=== PATIENT | male | born 1940 | race Caucasian/White ===

== ENCOUNTER 2019-03-24 06:10 | Day surgery (SDC) | payer MEDICARE, OTHER ==
[~2019-03-24] VITALS: Ht 160 cm; Wt 89.7 kg
[~2019-03-24 06:10] MED LIST: ATOR20 PO; LISI20 PO; METF500 PO; TAMS.4ER PO
[2019-03-24] MEDS ORDERED: MELO7.5 PO (06:49)
[2019-03-24] MEDS ORDERED: ASPI81CH PO (06:49)
== END 2019-03-24 08:14 | disposition home or self-care (01) ==
LOC: ORSCSDS 06:10
PROVIDERS: Ophthalmology
PROC: 08RJ3JZ Replacement of Right Lens with Synthetic Substitute, Percutaneous Approach (ICD-10-PCS; principal; 2019-03-24 07:30)
DX: H25.11 Age-related nuclear cataract, right eye (principal); H21.81 Floppy iris syndrome; I10 Essential (primary) hypertension; E11.9 Type 2 diabetes mellitus without complications; E78.00 Pure hypercholesterolemia, unspecified; Z79.84 Long term (current) use of oral hypoglycemic drugs; Z79.82 Long term (current) use of aspirin; Z79.899 Other long term (current) drug therapy
CPT/HCPCS: 82947; J2001; J2250; J3010; J3301; J7040; V2632

== ENCOUNTER 2019-07-07 06:39 | Day surgery (SDC) | payer MEDICARE, OTHER ==
[~2019-07-07] VITALS: Ht 167.6 cm; Wt 89.9 kg
[~2019-07-07 06:39] MED LIST changes: +ARTHRITIS HOT P; +ASPI81CH PO; +CHLO4 PO; +IBUP200 PO; +MELO7.5 PO; +MOBIC15 MG PO; +Prinivil10 MG PO; +Saw Palmetto450 MG PO; +VITAMIN D350 MCG PO; +ZYRTEC10 MG; +[UNRECOGNIZED DRUG - OTHER]
== END 2019-07-07 08:46 | disposition home or self-care (01) ==
LOC: ORSCSDS 06:39
PROVIDERS: Ophthalmology
PROC: 08RK3JZ Replacement of Left Lens with Synthetic Substitute, Percutaneous Approach (ICD-10-PCS; principal; 2019-07-07 08:00)
DX: H25.12 Age-related nuclear cataract, left eye (principal); H21.81 Floppy iris syndrome; I10 Essential (primary) hypertension; E78.5 Hyperlipidemia, unspecified; E11.9 Type 2 diabetes mellitus without complications; Z79.899 Other long term (current) drug therapy; Z79.82 Long term (current) use of aspirin
CPT/HCPCS: 82947; J2001; J2250; J3010; J3301; J7040; V2632

== ENCOUNTER → 2022-12-18 | Outpatient (CLI) | payer MEDICARE, OTHER ==
[~2022-12-18] MED LIST changes: +ACET325 PO; +AMOCLA875 PO; +ELIQUIS5 M2 PO; +LIVALO2 MG PO; +MIRALAX17 GM PO; +Mobic15 MG PO; +OMEP20ER PO; +OXYC5 PO; +SENN187 PO; +TAMSULOSIN HCL0.4 M1 PO; +VISBIOME 112.51 EACH PO; +XTAMPZA ER9 MG PO
[2022-12-18 17:16] LABS: BASOPHILS ABSOLUTE AUTO 0.03 K/mm3 (0.00-0.23); BASOPHILS PERCENT AUTO 0 % (0-2); EOSINOPHILS ABSOLUTE AUTO 0.09 K/mm3 (0.00-0.68); EOSINOPHILS PERCENT AUTO 1 % (0-6); Hematocrit 38.5 % (37.0-53.0); Hemoglobin 12.1 g/dL (13.5-17.5); IMMATURE GRAN ABSOLUTE AUTO 0.02 K/mm3 (0.00-0.10); IMMATURE GRAN PERCENT AUTO 0 % (0-1); LYMPHOCYTES ABSOLUTE AUTO 1.75 K/mm3 (0.84-5.20); LYMPHOCYTES PERCENT AUTO 26 % (21-46); MONOCYTES ABSOLUTE AUTO 0.67 K/mm3 (0.16-1.47); MONOCYTES PERCENT AUTO 10 % (4-13); Mean Corpuscular HGB 28.4 pg (26.0-34.0); Mean Corpuscular HGB Conc 31.4 g/dL (31.5-36.5); Mean Corpuscular Volume 90 fL (80-100); Mean Platelet Volume 10.1 fL (9.1-12.4); NEUTROPHILS ABSOLUTE AUTO 4.15 K/mm3 (1.96-9.15); NEUTROPHILS PERCENT AUTO 62 % (41-73); Platelet Count 236 K/mm3 (150-400); RDW Coefficient Variation 14.9 % (11.7-14.2); RDW Standard Deviation 49.1 fL (35.1-46.3); Red Blood Cell Count 4.26 M/mm3 (4.30-5.90); White Blood Cell Count 6.71 K/mm3 (4.00-11.30)
[2022-12-18 19:44] LABS: PSA, %Free 31.6 %
[2022-12-18 19:51] LABS: Alanine Aminotransfer (ALT/SGP 38 U/L (12-78); Albumin, Blood 3.5 g/dL (3.4-5.0); Albumin/Globulin Ratio 0.7 (0.8-1.8); Alk Phos 88 U/L (50-136); Anion Gap 7 mmol/L (6-16); Aspartate Aminotrans (AST/SGOT 30 U/L (12-37); Bilirubin, Direct <0.1 mg/dL (0.0-0.3); Bilirubin, Total 0.3 mg/dL (0.1-1.0); Blood Urea Nitrogen 20 mg/dL (8-24); Bun/Creatinine Ratio 26.1 (12.0-20.0); CO2, Blood 25 mmol/L (21-32); Calcium, Blood 9.5 mg/dL (8.5-10.1); Chloride, Blood 104 mmol/L (98-108); Creatinine, Blood 0.77 mg/dL (0.60-1.20); Glomerular Filtration Rate 90 (60-); Glucose, Blood 155 mg/dL (70-99); Potassium, Blood 4.5 mmol/L (3.5-5.5); Sodium, Blood 136 mmol/L (136-145); Total Protein, Blood 8.5 g/dL (6.4-8.2)
[2022-12-18 19:53] LABS: Bilirubin, Indirect Unable to Calculate mg/dL (0.1-0.7)
== END | disposition home or self-care (01) ==
LOC: LAB SHORT 15:42 → LAB 15:42 → LAB FUT 04-03 16:30
PROVIDERS: Internal Medicine
DX: E11.9 Type 2 diabetes mellitus without complications (principal); I10 Essential (primary) hypertension; R97.20 Elevated prostate specific antigen [PSA]; D64.9 Anemia, unspecified; R74.01 Elevation of levels of liver transaminase levels
CPT/HCPCS: 36415; 80048; 80076; 84153; 84154; 85025

== ENCOUNTER 2024-01-11 11:06 | Inpatient (IN) | payer MEDICARE, OTHER ==
[~2024-01-11] VITALS: Ht 165.1 cm; Wt 75.2 kg
[~2024-01-11 11:06] MED LIST changes: -LIVALO2 MG PO
[2024-01-11 12:27] LABS: BASOPHILS ABSOLUTE AUTO 0.05 K/mm3 (0.00-0.23); BASOPHILS PERCENT AUTO 0 % (0-2); EOSINOPHILS PERCENT AUTO 0 % (0-6); Hematocrit 33.9 % (37.0-53.0); Hemoglobin 11.7 g/dL (13.5-17.5); IMMATURE GRAN ABSOLUTE AUTO 0.23 K/mm3 (0.00-0.10); IMMATURE GRAN PERCENT AUTO 1 % (0-1); LYMPHOCYTES PERCENT AUTO 4 % (21-46); MONOCYTES ABSOLUTE AUTO 1.63 K/mm3 (0.16-1.47); MONOCYTES PERCENT AUTO 6 % (4-13); Mean Corpuscular HGB 29.2 pg (26.0-34.0); Mean Corpuscular HGB Conc 34.5 g/dL (31.5-36.5); Mean Corpuscular Volume 85 fL (80-100); Mean Platelet Volume 9.3 fL (9.1-12.4); NEUTROPHILS ABSOLUTE AUTO 22.96 K/mm3 (1.96-9.15); NEUTROPHILS PERCENT AUTO 89 % (41-73); Platelet Count 335 K/mm3 (150-400); RDW Coefficient Variation 12.9 % (11.7-14.2); RDW Standard Deviation 39.9 fL (35.1-46.3); Red Blood Cell Count 4.01 M/mm3 (4.30-5.90); White Blood Cell Count 25.77 K/mm3 (4.00-11.30)
[2024-01-11 12:44] LABS: Albumin, Blood 2.3 g/dL (3.4-5.0); Albumin/Globulin Ratio 0.5 (0.8-1.8); Bilirubin, Total 0.3 mg/dL (0.1-1.0); Calcium, Blood 9.2 mg/dL (8.5-10.1); Creatinine, Blood 3.83 mg/dL (0.60-1.20); Globulin, Blood 4.9 g/dL (2.2-4.0); Potassium, Blood 5.2 mmol/L (3.5-5.5); Total Protein, Blood 7.2 g/dL (6.4-8.2)
[2024-01-11] MEDS ORDERED: Lactated Ringer's 1,000 ML IV SCH (15:25)
[2024-01-11] MEDS ORDERED: FLU VACC TS2024-25(6MOS UP)/PF 45 MCG/0.5 ML SYRINGE IM PRN (16:20)
[2024-01-11] MEDS ORDERED: Ondansetron HCl 2 MG / ML 2ML Vial IV PRN (16:20)
[2024-01-11] MEDS ORDERED: NS 1,000 ML IV SCH (16:20)
[2024-01-11] MEDS ORDERED: HydrALAZINE HCl 10 MG Tab PO PRN (16:25)
[2024-01-11] MEDS ORDERED: Acetaminophen 325 MG TABLET PO PRN (16:25)
[2024-01-11] MEDS ORDERED: Insulin Regular 100 UNIT/ML 10ML Vial SC SCH (16:30)
[2024-01-11 17:15] LABS: Uric Acid, Blood 8.3 mg/dL (3.5-7.2)
[2024-01-11 17:24] LABS: Thyroid Stimulating Hormone 0.719 uIU/mL (0.360-4.800)
[2024-01-11 18:17] VITALS: BP 153/80
[2024-01-11] MEDS ORDERED: NITR.4SL SL (18:20)
--- NOTE | 2024-01-11 18:54 | NUR ---
ADMIT MR ALDANA WAS ADMITTED FROM ER AT 1807HRS. TRANSFERED VIA WHEELCHAIR AND MOVED OVER INTO BED WITH STANDBY ASSISTANCE. ACCOMPANIED BY HIS . PT C/O HAVING THE URGE TO VOID AND BEING UNABLE TO. BLADDER SCAN 352CC. ATTEMPTED TO CALL DR PEREZ, NO MESSAGE LEFT. PT SAID HE TAKES TYLENOL 1000MG PO AT HOME FOR CHRONIC BACK PAIN AND HAS BEEN TOLD NOT TO TAKE IT D/T HIS KIDNEYS, REQUESTING PAIN MEDICATIONS. HIS GIVES HIM HIS MEDICATIONS AND SHE SAID HE HAS BEEN OFF OF ELIQUIS SINCE MARCH. PUT ON CONTACT ISOLATION FOR R/O CDIFF. IVF STARTED AT 125CC/HR. REPORT TO GEGE CARPIO (NG=IGHT SHIFT).
[2024-01-11 19:41] VITALS: BP 154/82
[2024-01-11 20:32] LABS: Source, Urine Straight Cath
[2024-01-11 20:48] LABS: Bilirubin, Urine Neg (Neg); Blood, Urine 5+ (Neg); Glucose Qualitative, Urine Neg (Neg); Ketones, Urine Neg (Neg); Leukocyte Esterase, Urine Neg (Neg); Nitrite, Urine Neg (Neg); Protein, Urine 1+ (Neg); Urobilinogen, Urine NORM (Normal)
[2024-01-11] MEDS ORDERED: TraMADol HCl 50 MG Tab PO PRN (20:50)
[2024-01-11 20:59] LABS: Appearance, Urine Hazy (Clear); Color, Urine Yellow (P-Yellow)
[2024-01-11 21:00] LABS: Bacteria Not Seen /hpf; Red Blood Cells, Urine TNTC /hpf (0-2); Squamous Epithelial Cells Not Seen /hpf (Few); White Blood Cells, Urine 0-2 /hpf (0-5)
[2024-01-11] MEDS ORDERED: Apixaban 5 MG Tab PO SCH (21:00)
[2024-01-11] MEDS ORDERED: Lactobacil 2-S.Thermo-Bifido 1 1 Cap PO SCH (21:00)
[2024-01-12 04:08] VITALS: BP 117/60
[2024-01-12 05:42] LABS: BASOPHILS ABSOLUTE AUTO 0.03 K/mm3 (0.00-0.23); BASOPHILS PERCENT AUTO 0 % (0-2); EOSINOPHILS ABSOLUTE AUTO 0.01 K/mm3 (0.00-0.68); EOSINOPHILS PERCENT AUTO 0 % (0-6); Hematocrit 28.3 % (37.0-53.0); Hemoglobin 9.5 g/dL (13.5-17.5); IMMATURE GRAN ABSOLUTE AUTO 0.16 K/mm3 (0.00-0.10); IMMATURE GRAN PERCENT AUTO 1 % (0-1); LYMPHOCYTES ABSOLUTE AUTO 0.72 K/mm3 (0.84-5.20); LYMPHOCYTES PERCENT AUTO 4 % (21-46); MONOCYTES ABSOLUTE AUTO 1.67 K/mm3 (0.16-1.47); MONOCYTES PERCENT AUTO 8 % (4-13); Mean Corpuscular HGB 28.6 pg (26.0-34.0); Mean Corpuscular HGB Conc 33.6 g/dL (31.5-36.5); Mean Corpuscular Volume 85 fL (80-100); Mean Platelet Volume 9.5 fL (9.1-12.4); NEUTROPHILS ABSOLUTE AUTO 18.13 K/mm3 (1.96-9.15); NEUTROPHILS PERCENT AUTO 88 % (41-73); Platelet Count 285 K/mm3 (150-400); RDW Coefficient Variation 13.2 % (11.7-14.2); RDW Standard Deviation 40.9 fL (35.1-46.3); Red Blood Cell Count 3.32 M/mm3 (4.30-5.90); White Blood Cell Count 20.72 K/mm3 (4.00-11.30)
[2024-01-12 06:23] LABS: Albumin, Blood 1.9 g/dL (3.4-5.0); Albumin/Globulin Ratio 0.4 (0.8-1.8); Bilirubin, Total 0.3 mg/dL (0.1-1.0); Bun/Creatinine Ratio 13.2 (12.0-20.0); Calcium, Blood 8.4 mg/dL (8.5-10.1); Creatinine, Blood 2.95 mg/dL (0.60-1.20); Globulin, Blood 4.3 g/dL (2.2-4.0); Potassium, Blood 4.7 mmol/L (3.5-5.5); Total Protein, Blood 6.2 g/dL (6.4-8.2)
--- NOTE | 2024-01-12 07:24 | NUR ---
PT IS ALERT TO SELF, SITUATION AND , MARYAM WHOM IS IN ROOM. INTERMITTENT CONFUSION. AMBULATES WITH A CANE. TELE IN PLACE SR 81. PT IS ON ISOLATION TO RULE OUT D-DIFF. UNABLE TO VOID, REC'D ORDER TO BLADDER SCAN POST VOID/DISCOMFORT AND STRAIGHT CATH >300 ML RESIDUAL URINE. PT ONLY SLEPT A COUPLE OF HOURS BROKE UP THROUGHOUT THE NIGHT. BED ALARM ACTIVATED FOR CONFUSION.
[2024-01-12 07:31] VITALS: BP 135/69
[2024-01-12] MEDS ORDERED: NS 1,000 ML IV SCH (08:25)
[2024-01-12] MEDS ORDERED: Tamsulosin HCl 0.4 MG Cap PO SCH (09:00)
[2024-01-12 10:09] LABS: Source, Urine Foley catheter
[2024-01-12 10:47] LABS: Appearance, Urine Hazy (Clear); Bilirubin, Urine Neg (Neg); Blood, Urine 5+ (Neg); Color, Urine Yellow (P-Yellow); Glucose Qualitative, Urine Neg (Neg); Ketones, Urine Neg (Neg); Leukocyte Esterase, Urine 1+ (Neg); Nitrite, Urine Neg (Neg); Protein, Urine 1+ (Neg); Specific Gravity, Urine 1.005 (1.003-1.022); Urobilinogen, Urine NORM (Normal)
[2024-01-12 11:10] LABS: Bacteria Few /hpf; Mucus Heavy (0-Heavy); Squamous Epithelial Cells Not Seen /hpf (Few)
[2024-01-12] MEDS ORDERED: CINNAMON EXTRA500 MG PO (14:02)
[2024-01-12] MEDS ORDERED: B-12500 MC2 PO (14:02)
[2024-01-12] MEDS ORDERED: KRILL OIL500 MG PO (14:04)
[2024-01-12] MEDS ORDERED: PRESERVISION A1 EAC1 PO (14:04)
[2024-01-12] MEDS ORDERED: Saw Palmetto160 MG PO (14:04)
[2024-01-12] MEDS ORDERED: LIVALO2 MG PO (14:06)
[2024-01-12 15:54] VITALS: BP 124/70
[2024-01-12 19:21] VITALS: BP 117/71
--- NOTE | 2024-01-12 19:37 | NUR ---
SHIFT SUMMARY- PT ALERT AND ORIENTED TO SELF AND FAMILY. PT HAD SEVERE URINARY RETENTION SINCE ADMIT. BLADDER SCANS AND STRAIGHT CATHS T/O THE NIGHT. PT HAD PAINFUL ABDOMEN WITH BLADDER SCAN OF 817ML THIS AM. SPOKE TO DR PEREZ AND RECIEVED AN ORDER TO PLACE A BUCHANAN CATH. PLACED A 14FR COUDE. PT SPOUSE STATES HE HAS BECOME MUCH MORE CLEAR T/O THE DAY, "EVER SINCE YOU PUT THAT CATHETER IN TODAY." PT IS IN BED, CALL LIGHT IN REACH NO S&S OF DISTRESS NOTED AT THE TIME OF BEDSIDE REPORT. BUCHANAN IN PLACE DRAINING YELLOW URINE. PT DENIES PAIN.
[2024-01-12 20:19] LABS: Adenovirus F 40/41 Not Detected (NOT DETECT); Astrovirus Not Detected (NOT DETECT); Campylobacter Sp Not Detected (NOT DETECT); Cryptosporidium Not Detected (NOT DETECT); Cyclospora Cayetanensis Not Detected (NOT DETECT); E. Coli O157 Not Detected (NOT DETECT); Entamoeba Histolytica Not Detected (NOT DETECT); Enteroaggregative E. coli-EAEC Not Detected (NOT DETECT); Enteropathogenic E. coli-EPEC Not Detected (NOT DETECT); Enterotoxigenic E. coli-ETEC Not Detected (NOT DETECT); Giardia Lamblia Not Detected (NOT DETECT); Norovirus GI/GII Not Detected (NOT DETECT); Plesiomonas Shigelloides Not Detected (NOT DETECT); Rotavirus A Not Detected (NOT DETECT); Salmonella Sp Not Detected (NOT DETECT); Sapovirus Not Detected (NOT DETECT); Shiga Toxin-prod E. coli-STEC Not Detected (NOT DETECT); Shigella/Enteroin E. coli-EIEC Not Detected (NOT DETECT); Vibrio Cholerae Not Detected (NOT DETECT); Vibrio Sp Not Detected (NOT DETECT); Yersinia Enterocolitica Not Detected (NOT DETECT)
--- NOTE | 2024-01-13 03:46 | NUR ---
Pt A&Ox3, able to make needs known, VSS, farnsworth patent and draining, medicated 1x with tylenol for c/o 4/10 back pain; sleeping at this time w/ at bedside, will cont to monitor until report given to oncoming nurse.
[2024-01-13 04:29] VITALS: BP 118/61
[2024-01-13 07:45] VITALS: BP 148/70
[2024-01-13 08:51] LABS: BASOPHILS ABSOLUTE AUTO 0.04 K/mm3 (0.00-0.23); BASOPHILS PERCENT AUTO 0 % (0-2); EOSINOPHILS ABSOLUTE AUTO 0.06 K/mm3 (0.00-0.68); EOSINOPHILS PERCENT AUTO 1 % (0-6); Hematocrit 32.2 % (37.0-53.0); Hemoglobin 10.6 g/dL (13.5-17.5); IMMATURE GRAN ABSOLUTE AUTO 0.08 K/mm3 (0.00-0.10); IMMATURE GRAN PERCENT AUTO 1 % (0-1); LYMPHOCYTES PERCENT AUTO 9 % (21-46); MONOCYTES ABSOLUTE AUTO 1.34 K/mm3 (0.16-1.47); MONOCYTES PERCENT AUTO 11 % (4-13); Mean Corpuscular HGB 28.6 pg (26.0-34.0); Mean Corpuscular HGB Conc 32.9 g/dL (31.5-36.5); Mean Corpuscular Volume 87 fL (80-100); Mean Platelet Volume 9.1 fL (9.1-12.4); NEUTROPHILS ABSOLUTE AUTO 9.44 K/mm3 (1.96-9.15); NEUTROPHILS PERCENT AUTO 78 % (41-73); Platelet Count 292 K/mm3 (150-400); RDW Coefficient Variation 13.3 % (11.7-14.2); RDW Standard Deviation 42.7 fL (35.1-46.3); White Blood Cell Count 12.06 K/mm3 (4.00-11.30)
[2024-01-13] MEDS ORDERED: Banana Flakes/Tos 1 EA Powder Pack PO SCH (09:00)
[2024-01-13 09:15] LABS: Bun/Creatinine Ratio 18.4 (12.0-20.0); Creatinine, Blood 1.25 mg/dL (0.60-1.20); Potassium, Blood 4.7 mmol/L (3.5-5.5)
[2024-01-13] MEDS ORDERED: BANATROL PLUS1 EAC1 PO (10:55)
[2024-01-13 14:57] VITALS: BP 158/67
--- NOTE | 2024-01-13 16:45 | NUR ---
PATIENT DC'D TO HOME WITH SPOUSE. DC INSTRUCTIONS AND EDUCATION DISCUSSED WITH PATIENT AND COPY PROVIDED. DISCUSSED CATHETER CARE. [facility] TO FOLLOW UP. PATIENT DENIES ANY URTHER QUESTIONS OR CONCERNS. RX MEDICATIONS FAXED TO [facility].
== END 2024-01-13 17:17 | disposition home health service (06) | DRG 683 ==
LOC: ER 11:06 → MEDS 18:05
PROVIDERS: Nurse Practitioner Acute Care; Physician Assistant; ADMIT Internal Medicine
PROC: 0T9B70Z Drainage of Bladder with Drainage Device, Via Natural or Artificial Opening (ICD-10-PCS; principal; 2024-01-12)
DX: N17.9 Acute kidney failure, unspecified (principal); E87.1 Hypo-osmolality and hyponatremia; E87.21 Acute metabolic acidosis; K52.9 Noninfective gastroenteritis and colitis, unspecified; M54.9 Dorsalgia, unspecified; G89.29 Other chronic pain; I27.20 Pulmonary hypertension, unspecified; K74.60 Unspecified cirrhosis of liver; E86.0 Dehydration; E11.9 Type 2 diabetes mellitus without complications; I10 Essential (primary) hypertension; D63.8 Anemia in other chronic diseases classified elsewhere; N40.1 Benign prostatic hyperplasia with lower urinary tract symptoms; R39.14 Feeling of incomplete bladder emptying; H91.93 Unspecified hearing loss, bilateral; Z85.828 Personal history of other malignant neoplasm of skin; K21.9 Gastro-esophageal reflux disease without esophagitis; I35.0 Nonrheumatic aortic (valve) stenosis; Z90.49 Acquired absence of other specified parts of digestive tract; Z98.890 Other specified postprocedural states; Z86.718 Personal history of other venous thrombosis and embolism; Z87.81 Personal history of (healed) traumatic fracture; Z88.5 Allergy status to narcotic agent; Z79.82 Long term (current) use of aspirin; Z79.01 Long term (current) use of anticoagulants; Z79.84 Long term (current) use of oral hypoglycemic drugs; Z79.899 Other long term (current) drug therapy; Z98.49 Cataract extraction status, unspecified eye
CPT/HCPCS: 36415; 74018; 76770; 80048; 80053; 81001; 82010; 82947; 83605; 84295; 84443; 84550; 85025; 87086; 87507; 96360; 97116; 97162; 97530; 99285-25; A9270; J1815; J7030; J7120

== ENCOUNTER 2024-01-13 22:53 | Emergency (ER) | payer MEDICARE, OTHER ==
[~2024-01-13] VITALS: Ht 165.1 cm; Wt 72.6 kg
[~2024-01-13 22:53] MED LIST changes: +B-12500 MC2 PO; +BANATROL PLUS1 EAC1 PO; +CINNAMON EXTRA500 MG PO; +KRILL OIL500 MG PO; +LIVALO2 MG PO; +NITR.4SL SL; +PRESERVISION A1 EAC1 PO; +Saw Palmetto160 MG PO
[2024-01-14 00:26] LABS: Albumin, Blood 2.2 g/dL (3.4-5.0); Albumin/Globulin Ratio 0.5 (0.8-1.8); Bilirubin, Total 0.3 mg/dL (0.1-1.0); Bun/Creatinine Ratio 19.2 (12.0-20.0); Creatinine, Blood 0.89 mg/dL (0.60-1.20); Globulin, Blood 4.6 g/dL (2.2-4.0); Potassium, Blood 4.5 mmol/L (3.5-5.5); Total Protein, Blood 6.8 g/dL (6.4-8.2)
[2024-01-14 01:08] VITALS: BP 145/63
[2024-01-15] MEDS ORDERED: SYSTANE GEL10 GM BOTHEYES (20:52)
[2024-01-15] MEDS ORDERED: SYSTANE ULTRA P10 ML BOTHEYES (20:53)
== END 2024-01-14 01:09 | disposition home or self-care (01) ==
LOC: ER 22:53
PROVIDERS: Student in an Organized Health Care Education/Training Program
DX: T83.091A Other mechanical complication of indwelling urethral catheter, initial encounter (principal); N13.8 Other obstructive and reflux uropathy; I10 Essential (primary) hypertension; E11.9 Type 2 diabetes mellitus without complications; Z79.82 Long term (current) use of aspirin; Z79.84 Long term (current) use of oral hypoglycemic drugs; Z79.899 Other long term (current) drug therapy; Z88.5 Allergy status to narcotic agent
CPT/HCPCS: 51702; 80053; 99283

== ENCOUNTER 2024-01-15 07:49 | Observation (INO) | payer MEDICARE, OTHER ==
[~2024-01-15] VITALS: Ht 172.7 cm; Wt 70.6 kg
[2024-01-15 14:27] LABS: BASOPHILS ABSOLUTE AUTO 0.03 K/mm3 (0.00-0.23); BASOPHILS PERCENT AUTO 0 % (0-2); EOSINOPHILS ABSOLUTE AUTO 0.02 K/mm3 (0.00-0.68); EOSINOPHILS PERCENT AUTO 0 % (0-6); Hematocrit 31.5 % (37.0-53.0); Hemoglobin 10.3 g/dL (13.5-17.5); IMMATURE GRAN PERCENT AUTO 1 % (0-1); LYMPHOCYTES PERCENT AUTO 7 % (21-46); MONOCYTES PERCENT AUTO 8 % (4-13); Mean Corpuscular HGB 28.2 pg (26.0-34.0); Mean Corpuscular HGB Conc 32.7 g/dL (31.5-36.5); Mean Corpuscular Volume 86 fL (80-100); Mean Platelet Volume 9.4 fL (9.1-12.4); NEUTROPHILS ABSOLUTE AUTO 15.15 K/mm3 (1.96-9.15); NEUTROPHILS PERCENT AUTO 84 % (41-73); Platelet Count 328 K/mm3 (150-400); RDW Coefficient Variation 13.5 % (11.7-14.2); RDW Standard Deviation 42.5 fL (35.1-46.3); Red Blood Cell Count 3.65 M/mm3 (4.30-5.90)
[2024-01-15 14:58] LABS: Bun/Creatinine Ratio 19.2 (12.0-20.0); Calcium, Blood 9.1 mg/dL (8.5-10.1); Creatinine, Blood 0.78 mg/dL (0.60-1.20); Potassium, Blood 5.3 mmol/L (3.5-5.5)
[2024-01-15 15:10] LABS: Source, Urine Foley catheter
[2024-01-15 15:19] LABS: Bilirubin, Urine Neg (Neg); Blood, Urine 5+ (Neg); Glucose Qualitative, Urine Neg (Neg); Ketones, Urine Neg (Neg); Leukocyte Esterase, Urine 1+ (Neg); Nitrite, Urine Neg (Neg); Protein, Urine 2+ (Neg); Urobilinogen, Urine NORM (Normal)
[2024-01-15 15:33] LABS: Appearance, Urine Hazy (Clear); Color, Urine Yellow (P-Yellow)
[2024-01-15 15:34] LABS: Red Blood Cells, Urine 25-50 /hpf (0-2)
[2024-01-15 15:35] LABS: Bacteria Rare /hpf; Squamous Epithelial Cells Not Seen /hpf (Few)
[2024-01-15] MEDS ORDERED: FLU VACC TS2024-25(6MOS UP)/PF 45 MCG/0.5 ML SYRINGE IM SCH (17:20)
[2024-01-15] MEDS ORDERED: Metoclopramide HCl 5MG / ML 2ML Vial IV PRN (17:20)
[2024-01-15] MEDS ORDERED: Ibuprofen 400 MG Tab PO PRN (17:25)
[2024-01-15] MEDS ORDERED: Insulin Glargine-Yfgn 100 Unit/mL 3 ML SYR SC SCH (18:00)
[2024-01-15 18:51] VITALS: BP 180/90
--- NOTE | 2024-01-15 19:05 | NUR ---
ADMISSION NOTE MR ALDANA WAS ADMITTED TO MEDICAL FLOOR FROM ER AT 1825HRS. HE CAME UP ON A STRETCHER AND WAS ABLE TO TRANSFER WITH STANDBY ASSISTANCE INTO BED. HE WAS ADMITTED FOR URINARY RETENTION, BUCHANAN CATHETER WAS CHANGED OUT IN THE ER, NOW DRAINING CLEAR YELLOW URINE WITH SOME OLD BLOOD AT INSERTION SITE. PT IS OIENTATED TO SELF, PLACE, SITUATION BUT HE IS UNABLE TO REMEMBER WHAT MONTH IT IS. HE SAID HE HAS NOT SLEPT FOR 24 HOURS AND THAT THIS IS NOT NORMAL FOR HIM. HIS IS COMING IN FROM HOME. HIS MED LIST NEEDS TO BE RECONSILED, HIS KNOWS HIS MEDS. HE HAS AN ABRASION ON HIS FOREHEAD. HE SAID HE FELL IN THE BATHROOM AT HOME 2-3 DAYS AGO. MULTIPLE BRUISES AND AN ABRSAION TO ARMS. BLOOD PRESSURE ELEVATED ON ADMISSION. PT LIVES WITH HIS IN A HOME AND SAID HE IS NORMALLY INDEPENDENT. ARRIVED JUST BEFORE CHANGE OF SHIFT, REPORT TO MILTON CARPIO, PASSED ON HIGH BP, INSULIN DOSE, MED REC AND PHOTOS OF SKIN. BED LOW, CALL LIGHT IN REACH, BED ALARM ON.
[2024-01-15] MEDS ORDERED: SYSTANE GEL10 GM BOTHEYES (20:52)
[2024-01-15] MEDS ORDERED: SYSTANE ULTRA P10 ML BOTHEYES (20:53)
[2024-01-16 05:15] VITALS: BP 133/58
[2024-01-16 05:33] LABS: BASOPHILS ABSOLUTE AUTO 0.05 K/mm3 (0.00-0.23); BASOPHILS PERCENT AUTO 0 % (0-2); EOSINOPHILS ABSOLUTE AUTO 0.07 K/mm3 (0.00-0.68); EOSINOPHILS PERCENT AUTO 1 % (0-6); Hematocrit 28.1 % (37.0-53.0); Hemoglobin 9.1 g/dL (13.5-17.5); IMMATURE GRAN ABSOLUTE AUTO 0.08 K/mm3 (0.00-0.10); IMMATURE GRAN PERCENT AUTO 1 % (0-1); LYMPHOCYTES ABSOLUTE AUTO 1.65 K/mm3 (0.84-5.20); LYMPHOCYTES PERCENT AUTO 15 % (21-46); MONOCYTES ABSOLUTE AUTO 1.39 K/mm3 (0.16-1.47); MONOCYTES PERCENT AUTO 13 % (4-13); Mean Corpuscular HGB Conc 32.4 g/dL (31.5-36.5); Mean Corpuscular Volume 87 fL (80-100); Mean Platelet Volume 9.2 fL (9.1-12.4); NEUTROPHILS PERCENT AUTO 71 % (41-73); Platelet Count 304 K/mm3 (150-400); RDW Coefficient Variation 13.6 % (11.7-14.2); RDW Standard Deviation 42.6 fL (35.1-46.3); Red Blood Cell Count 3.25 M/mm3 (4.30-5.90); White Blood Cell Count 11.14 K/mm3 (4.00-11.30)
[2024-01-16 05:55] LABS: Albumin, Blood 1.9 g/dL (3.4-5.0); Albumin/Globulin Ratio 0.5 (0.8-1.8); Bilirubin, Total 0.2 mg/dL (0.1-1.0); Calcium, Blood 9.1 mg/dL (8.5-10.1); Creatinine, Blood 0.71 mg/dL (0.60-1.20); Globulin, Blood 4.1 g/dL (2.2-4.0); Potassium, Blood 4.2 mmol/L (3.5-5.5)
--- NOTE | 2024-01-16 06:30 | NUR ---
Pt with good UOP on this shift, 950 out, small amount of bloody discharge from change of farnsworth. BP trending down from HTN episode on PM shift. BG WNL, no insulin administered last pm d/t no eating well. at bedside through the night. Pt with minor pain and ibuprofen was administered. slept well.
[2024-01-16] MEDS ORDERED: Insulin Human Lispro 100 Units/ML 3ML Syringe SC SCH (07:30)
[2024-01-16 08:03] VITALS: BP 155/78
[2024-01-16] MEDS ORDERED: Enoxaparin 40 MG/0.4 ML SYR SC SCH (09:00)
[2024-01-16 11:33] LABS: Bun/Creatinine Ratio 19.7 (12.0-20.0); Calcium, Blood 9.1 mg/dL (8.5-10.1); Creatinine, Blood 0.66 mg/dL (0.60-1.20); Potassium, Blood 4.2 mmol/L (3.5-5.5)
--- NOTE | 2024-01-16 14:03 | NUR ---
DISCHARGE NOTE: PT DISCHARGED HOME WITH TO TRANSFER IN PERSONAL CAR. PT ESCORTED OUT BY THIS RN AFTER PT AND FAMILY EDUCATED ON DISCHARGE ORDERS AND MEDICATIONS. PT DISCHARGED WITH CHRONIC BUCHANAN IN PLACE DRAINING TO GRAVITY. ALL QUESTIONS ANSWERED, PT AND FAMILY HAD NO QUESTIONS OR CONCERNS AT TIME OF DISCHARGE.
== END 2024-01-16 13:54 | disposition home or self-care (01) ==
LOC: ER 07:49 → MEDS 07:50
PROVIDERS: Family Medicine; Student in an Organized Health Care Education/Training Program; ADMIT Hospitalist
DX: R33.9 Retention of urine, unspecified (principal); I10 Essential (primary) hypertension; E11.9 Type 2 diabetes mellitus without complications; E78.5 Hyperlipidemia, unspecified; K21.9 Gastro-esophageal reflux disease without esophagitis; K76.0 Fatty (change of) liver, not elsewhere classified
CPT/HCPCS: 36415; 51702; 51798; 80048; 80053; 81001; 82947; 83935; 85025; 96372; 99284-25; A9270; G0378; J1650; J1815

== ENCOUNTER 2024-02-24 09:08 | Inpatient (IN) | payer MEDICARE, OTHER ==
[~2024-02-24] VITALS: Ht 160 cm; Wt 65.2 kg
[~2024-02-24 09:08] MED LIST changes: +SYSTANE GEL10 GM BOTHEYES; +SYSTANE ULTRA P10 ML BOTHEYES
[2024-02-24 10:00] LABS: BASOPHILS ABSOLUTE AUTO 0.04 K/mm3 (0.00-0.23); BASOPHILS PERCENT AUTO 0 % (0-2); EOSINOPHILS ABSOLUTE AUTO 0.07 K/mm3 (0.00-0.68); EOSINOPHILS PERCENT AUTO 1 % (0-6); Hematocrit 30.4 % (37.0-53.0); Hemoglobin 9.8 g/dL (13.5-17.5); IMMATURE GRAN ABSOLUTE AUTO 0.08 K/mm3 (0.00-0.10); IMMATURE GRAN PERCENT AUTO 1 % (0-1); LYMPHOCYTES PERCENT AUTO 9 % (21-46); MONOCYTES PERCENT AUTO 9 % (4-13); Mean Corpuscular HGB 26.7 pg (26.0-34.0); Mean Corpuscular HGB Conc 32.2 g/dL (31.5-36.5); Mean Corpuscular Volume 83 fL (80-100); Mean Platelet Volume 9.2 fL (9.1-12.4); NEUTROPHILS ABSOLUTE AUTO 10.76 K/mm3 (1.96-9.15); NEUTROPHILS PERCENT AUTO 81 % (41-73); Platelet Count 360 K/mm3 (150-400); RDW Coefficient Variation 14.5 % (11.7-14.2); RDW Standard Deviation 43.9 fL (35.1-46.3); Red Blood Cell Count 3.67 M/mm3 (4.30-5.90); White Blood Cell Count 13.35 K/mm3 (4.00-11.30)
[2024-02-24 10:19] LABS: Albumin/Globulin Ratio 0.3 (0.8-1.8); Bilirubin, Total 0.4 mg/dL (0.1-1.0); Bun/Creatinine Ratio 26.8 (12.0-20.0); Creatinine, Blood 0.63 mg/dL (0.60-1.20); Globulin, Blood 6.5 g/dL (2.2-4.0); Potassium, Blood 4.1 mmol/L (3.5-5.5); Total Protein, Blood 8.5 g/dL (6.4-8.2)
[2024-02-24] MEDS ORDERED: NS 1,000 ML IV SCH ×2 (10:50→17:00)
[2024-02-24 11:25] LABS: Source, Urine Foley catheter
[2024-02-24 11:31] LABS: Appearance, Urine Clear (Clear); Bilirubin, Urine Neg (Neg); Blood, Urine 2+ (Neg); Color, Urine Yellow (P-Yellow); Glucose Qualitative, Urine Neg (Neg); Ketones, Urine Neg (Neg); Leukocyte Esterase, Urine 1+ (Neg); Nitrite, Urine Neg (Neg); Protein, Urine Neg (Neg); Specific Gravity, Urine 1.005 (1.003-1.022); Urobilinogen, Urine NORM (Normal); pH, Urine 6.5 (5.0-8.0)
[2024-02-24 11:50] LABS: CORONAVIRUS COVID-19 AG Negative (NEGATIVE); INFLUENZA A AG Negative (NEGATIVE); INFLUENZA B AG Negative (NEGATIVE)
[2024-02-24] MEDS ORDERED: Ampicillin Sod/Sulbactam Sod 3 GM in NS 100 ML IV ONE (12:05)
[2024-02-24 12:18] LABS: Bacteria Many /hpf; Squamous Epithelial Cells Few /hpf (Few)
[2024-02-24] MEDS ORDERED: Ondansetron HCl 2 MG / ML 2ML Vial IV PRN (14:40)
[2024-02-24] MEDS ORDERED: FLU VACC TS2024-25(6MOS UP)/PF 45 MCG/0.5 ML SYRINGE IM SCH (14:40)
[2024-02-24] MEDS ORDERED: Lactated Ringer's 1,000 ML IV SCH (15:00)
--- NOTE | 2024-02-24 16:36 | NUR ---
PATIENT TRANSFERED TO MEDICAL FLOOR ROOM 347, REPORT CALLED TO [facility].
--- NOTE | 2024-02-24 17:01 | NUR ---
PT ARRIVED TO ROOM AT 1645 AOX4 AND COOPERATIVE OF CARE. PT RESTING COMFORTABLY AFTER BEING SETTLED IN ROOM. PT HAS NEW ACCORDIAN DRAIN R FLANK NO BLEEDING NOTED. BAG HAS PUS LIKE FLUID DRAINING. PT SHOWN CALL LIGHT AND INSTRUCTED ON HOW TO USE IT. PT HAS CHRONIC BUCHANAN WHICH WAS CURRENTLY PLACED BY UROLOGY DOCTOR WAS NOT CHANGED DUE TO THIS. WILL CONTINUE TO MONITOR.
[2024-02-24 17:02] VITALS: BP 138/84
[2024-02-24] MEDS ORDERED: Ampicillin Sod/Sulbactam Sod 3 GM in NS 100 ML IV SCH (18:00)
[2024-02-24 19:26] VITALS: BP 121/57
[2024-02-24] MEDS ORDERED: Famotidine 20 MG Tab PO SCH (21:00)
[2024-02-24] MEDS ORDERED: Lactobacil 2-S.Thermo-Bifido 1 1 Cap PO SCH (21:00)
[2024-02-25 03:06] VITALS: BP 106/51
--- NOTE | 2024-02-25 04:26 | NUR ---
SHIFT SUMMARY 83 YR M ADMITTED ON 02/24/24. FULL CODE. PT PREFERS TO BE CALLED "DWIGHT". NO ACUTE CHANGES THIS SHIFT. ACCORDIAN DRAIN WAS DRAINING GREEN PUS LOOKING FLUID BUT THE COLOR OF DRAINAGE HAS CHANGED TO DARK RED (PURPLE) AND RESEMBLES PUSY BLOOD. PT HAS NO C/O PAIN OR DISCOMFORT. IS STAYING THE NIGHT IN THE ROOM. BOTH ARE PLEASANT AND COOPERATIVE WITH CARE. WILL CONTINUE TO MONITOR. BED IN LOW POSITION AND CALL LIGHT IN REACH.
[2024-02-25 06:04] LABS: Hematocrit 25.3 % (37.0-53.0); Mean Corpuscular HGB 26.6 pg (26.0-34.0); Mean Corpuscular HGB Conc 31.6 g/dL (31.5-36.5); Mean Corpuscular Volume 84 fL (80-100); Mean Platelet Volume 9.2 fL (9.1-12.4); Platelet Count 299 K/mm3 (150-400); RDW Coefficient Variation 14.7 % (11.7-14.2); RDW Standard Deviation 45.3 fL (35.1-46.3); Red Blood Cell Count 3.01 M/mm3 (4.30-5.90); White Blood Cell Count 10.12 K/mm3 (4.00-11.30)
[2024-02-25 06:47] LABS: Bun/Creatinine Ratio 16.5 (12.0-20.0); Calcium, Blood 8.9 mg/dL (8.5-10.1); Creatinine, Blood 0.61 mg/dL (0.60-1.20); Potassium, Blood 4.2 mmol/L (3.5-5.5)
[2024-02-25 07:22] VITALS: BP 137/83
[2024-02-25] MEDS ORDERED: Insulin Human Lispro 100 Units/ML 3ML Syringe SC SCH (07:30)
[2024-02-25] MEDS ORDERED: Heparin Sodium 5000 Units/ML 1ML MDV SC SCH (09:00)
[2024-02-25] MEDS ORDERED: Acetaminophen 325 MG TABLET PO PRN (09:10)
[2024-02-25] MEDS ORDERED: Vancomycin HCL 1,500 MG in NS 250 ML IV ONE (09:20)
[2024-02-25 16:19] VITALS: BP 138/72
--- NOTE | 2024-02-25 17:00 | NUR ---
NO ACUTE CHANGES THIS SHIFT, PT IS ALERT AND ORIENTED X4, ABLE TO EXPRESS NEEDS, AT BEDSIDE, TREATED PAIN PER EMAR. ACCORDIAN DRAIN IN PLACE, SEROSANG OUTPUT. PT REPORTS FEELING BETTER THAN HE HAS IN A LONG WHILE, AGREES. CHRONIC BUCHANAN IN PLACE, DRAINING TO GRAVITY, PT DENIES CHEST PAIN/PRESSURE. DENIES SOB. FWW SBA
[2024-02-25 20:00] VITALS: BP 162/70
[2024-02-25 20:58] VITALS: BP 135/70
[2024-02-26] MEDS ORDERED: NS 250 ML IV PRN (03:10)
--- NOTE | 2024-02-26 04:13 | NUR ---
SHIFT SUMMARY PATIENT IS AOX4. PATIENT IS 1P/SBA WITH FWW. R ACCORDION DRAIN. BUCHANAN CATHETER IN PLACE. PATIENT ABLE TO MAKE NEEDS KNOWN. NO ACUTE CHANGES NOTED THIS SHIFT. BED LOCKED IN LOWEST POSITION. ALL NEEDS ADDRESSED. CARE IS ONGOING.
[2024-02-26 05:33] LABS: Hematocrit 27.5 % (37.0-53.0); Hemoglobin 8.5 g/dL (13.5-17.5); Mean Corpuscular HGB 26.2 pg (26.0-34.0); Mean Corpuscular HGB Conc 30.9 g/dL (31.5-36.5); Mean Corpuscular Volume 85 fL (80-100); Mean Platelet Volume 9.1 fL (9.1-12.4); Platelet Count 303 K/mm3 (150-400); RDW Coefficient Variation 14.9 % (11.7-14.2); RDW Standard Deviation 45.6 fL (35.1-46.3); Red Blood Cell Count 3.25 M/mm3 (4.30-5.90); White Blood Cell Count 7.97 K/mm3 (4.00-11.30)
[2024-02-26 05:57] VITALS: BP 143/78
[2024-02-26 06:18] LABS: Bun/Creatinine Ratio 11.5 (12.0-20.0); Creatinine, Blood 0.61 mg/dL (0.60-1.20); Potassium, Blood 4.1 mmol/L (3.5-5.5)
--- NOTE | 2024-02-26 06:38 | NUR ---
LATE ENTRY 02/25/24 1800 ACCORDIAN DRAIN CHANGED OUT. UNABLE TO DRAIN FLUID FROM BAG 200 CC OUT
[2024-02-26 07:17] VITALS: BP 144/78
[2024-02-26] MEDS ORDERED: Vancomycin HCL 1,500 MG in NS 250 ML IV ONE (15:25)
[2024-02-26 15:53] VITALS: BP 141/80
--- NOTE | 2024-02-26 17:14 | NUR ---
SHIFT SUMMARY PT AOX4, 1 ASSIST WITH THE FWW TO THE CHAIR. ACCORDIAN DRAIN IN PLACE AND DRAINING. BUCHANAN IN PLACE AND DRAINING. AT THE BS. MEDICATED FOR PAIN PER THE EMAR. R SIDE OF ABD DRESSING CDI. NO ACUTE CHANGES, PT STATES MUCH RELIEF SINCE PROCEDURE. RESPOSITIONS SELF IN BED. CALLS AND MAKES HIS NEEDS KNOWN. NO EVENTS PER TELE. CALL LIGHT WITHIN REACH, BED LOCKED AND IN THE LOWEST POSITION. WILL REPORT TO ONCOMING NURSE.
[2024-02-26 20:48] VITALS: BP 136/65
--- NOTE | 2024-02-27 04:53 | NUR ---
SHIFT SUMMARY PATIENT AOX4. PATIENT'S , MICHELLE, IS AT BEDSIDE. PATIENT IS CALM, COMPLIANT, AND IS ABLE TO MAKE HIS NEEDS KNOWN. PATIENT HAS BUCHANAN CATHETER, WHICH IS PATENT AND DRAINING TO GRAVITY. PATIENT ALSO HAS ACCORDION DRAIN ON RUQ ABD. NO ACUTE CHANGES OVERNIGHT. CARE IS ONGOING.
[2024-02-27 05:30] VITALS: BP 125/62
[2024-02-27] MEDS ORDERED: Vancomycin HCL 1,000 MG in NS 250 ML IV SCH (06:00)
[2024-02-27 06:11] LABS: Hematocrit 26.2 % (37.0-53.0); Mean Corpuscular HGB 25.9 pg (26.0-34.0); Mean Corpuscular HGB Conc 30.5 g/dL (31.5-36.5); Mean Corpuscular Volume 85 fL (80-100); Mean Platelet Volume 9.4 fL (9.1-12.4); Platelet Count 294 K/mm3 (150-400); RDW Coefficient Variation 14.9 % (11.7-14.2); RDW Standard Deviation 45.6 fL (35.1-46.3); Red Blood Cell Count 3.09 M/mm3 (4.30-5.90); White Blood Cell Count 8.26 K/mm3 (4.00-11.30)
[2024-02-27 06:37] LABS: Bun/Creatinine Ratio 20.2 (12.0-20.0); Creatinine, Blood 0.6 mg/dL (0.60-1.20); Potassium, Blood 4.1 mmol/L (3.5-5.5)
[2024-02-27 08:23] VITALS: BP 153/79
[2024-02-27] MEDS ORDERED: LISI5 PO (08:28)
[2024-02-27 15:01] VITALS: BP 144/74
[2024-02-27] MEDS ORDERED: Nitroglycerin 0.4 MG SUBL SL PRN (15:40)
[2024-02-27] MEDS ORDERED: Lisinopril 5 MG Tab PO SCH (16:00)
--- NOTE | 2024-02-27 17:33 | NUR ---
SHIFT NOTE: PT A/OX4 ABLE TO MAKE HIS NEEDS KNOWN. HIS IS AT BEDSISE T/O SHIFT. PT ON RA WITH NO SOB. HE IS ON TELE IN NSR, NO ACUTE EVENTS T/O SHIFT. HE HAS CHRONIC BUCHANAN DRAINING TO GRAVITY. HE WAS UP TO THE SHOWER TODAY WITH ANODISER AND CLAIMS HE FEELS SO MUCH BETTER. ACCORDIAN DRAIN TO RLQ WITH MINIMAL OUTPUT TODAY. HE DENIES PAIN. ANTIBIOTICS INFUSING PER EMAR
[2024-02-27 19:28] VITALS: BP 150/84
[2024-02-27] MEDS ORDERED: Tamsulosin HCl 0.4 MG Cap PO SCH (21:00)
[2024-02-27] MEDS ORDERED: Peg 400/Hypromellose/Glycerin 15 DROP/ML BTL BOTHEYES SCH (21:00)
--- NOTE | 2024-02-28 01:19 | NUR ---
CALLED HOSPITALIST PATIENT AND PATIENT'S AT BEDSIDE REPORT AN ITCHY RASH THAT BEGAN JUST BEFORE DINNER WAS SERVED ON 02/27/24. I DID VISUALISE WHAT LOOKS SIMILAR TO HIVES ACROSS THIS PATIENT'S BACK. THE PATIENT REPORTS NO OTHER SYMPTOMS. NEW ORDERS ENTERED INTO THE EMAR.
[2024-02-28] MEDS ORDERED: DiphenhydrAMINE HCl 50 MG Cap PO PRN (01:20)
--- NOTE | 2024-02-28 03:41 | NUR ---
SHIFT SUMMARY ADMITTED FOR RLQ ABDOMINAL PAIN. FULL CODE. FOUND TO HAVE AN ABDOMINAL ABSCESS. IV ANTIB RX ARE SCHEDULED. SURGICAL CONSULT IS DR. TURNER. ACCORDION DRAIN IN PLACE. POSSIBLE MRI PLANNED FOR TODAY. TELEMETRY: NSR @ 77 BPM WITH PVC'S. BISHOP PAIUTE. AT BEDSIDE. CHRONIC BUCHANAN IN PLACE. ACHS CBG'S - LOW SS. ADA DIET. A&O X4. ON RA. THIS SHIFT THE PATIENT DEVELOPED A HIVE LIKE RASH ON HIS BACK. HE STATED THE ITCHING STARTED JUST BEFORE DINNER ON 02/27/24. HOSPITALIST INFORMED. SEE PREVIOUS NOTE, MEDICATION ADMINISTERED. WILL CONTINUE TO MONITOR.
[2024-02-28 04:14] VITALS: BP 134/77
[2024-02-28 05:25] LABS: Hematocrit 25.7 % (37.0-53.0); Hemoglobin 7.9 g/dL (13.5-17.5); Mean Corpuscular HGB 26.3 pg (26.0-34.0); Mean Corpuscular HGB Conc 30.7 g/dL (31.5-36.5); Mean Corpuscular Volume 86 fL (80-100); Platelet Count 276 K/mm3 (150-400); RDW Coefficient Variation 15.1 % (11.7-14.2); RDW Standard Deviation 45.9 fL (35.1-46.3); White Blood Cell Count 7.95 K/mm3 (4.00-11.30)
[2024-02-28 05:42] LABS: Vancomycin, Trough 15.5 ug/mL (5.0-10.0)
--- NOTE | 2024-02-28 06:19 | NUR ---
NAHOMY HELD FOR CT CT IMAGING CALLED AND WANT TO TAKE THE PATIENT FOR HIS CT SCAN. I HAVE STORED THE NAHOMY ANTIB IN THE FRIDGE FOR NOW UNTIL THE PATIENT RETURNS.
[2024-02-28 07:42] VITALS: BP 127/75
[2024-02-28 13:45] LABS: Hematocrit 27.1 % (37.0-53.0); Hemoglobin 8.3 g/dL (13.5-17.5); Mean Corpuscular HGB 26.4 pg (26.0-34.0); Mean Corpuscular HGB Conc 30.6 g/dL (31.5-36.5); Mean Corpuscular Volume 86 fL (80-100); Mean Platelet Volume 9.1 fL (9.1-12.4); Platelet Count 310 K/mm3 (150-400); RDW Coefficient Variation 15.3 % (11.7-14.2); RDW Standard Deviation 47.4 fL (35.1-46.3); Red Blood Cell Count 3.14 M/mm3 (4.30-5.90); White Blood Cell Count 8.24 K/mm3 (4.00-11.30)
[2024-02-28 15:42] VITALS: BP 144/71
--- NOTE | 2024-02-28 16:31 | NUR ---
SHIFT SUMMARY: PATIENT A/OX4, SOKAOGON-WEARS HEARING AID TO BILAT EAR, PLEASANT AND COOPERATIVE c CARE. PATIENT HAS ACCORDIAN DRAINAIGE TO RUQ OF HIS ABDOMEN c A TOTAL OF 50 MLS SEROSANGUINEOUS OUPUT THIS SHIFT. PATIENT DENIES CP/PRESSURE SOB, N/V AND DIZZINESS. PATIENT ON TELE, SR HR IN THE 70'S BPM. PATIENT HAS GOOD APPETITE, CHRONIC BUCHANAN PATENT, DRAINING YELLOW URINE TO GRAVITY. PATIENT RECEIVED SCHEDULED IV ABX/MEDS PER EMAR. VITAL SIGNS REVIEWED. PATIENT HAS NO COMPLAINTS OR DENIES NEW CONCERNED THIS SHIFT. SPOUSE AT BEDSIDE AND PLAN TO STAYED OVERNIGHT. CALL LIGHT IN REACH.
[2024-02-28 19:41] VITALS: BP 137/77
--- NOTE | 2024-02-29 04:32 | NUR ---
SHIFT SUMMARY PATIENT AOX4, COOPERATIVE, AND ABLE TO MAKE NEEDS KNOWN. PATIENT'S SPOUSE, MICHELLE, AT BEDSIDE. PATIENT HAS TELEMETRY ON, HE IS SR RATE OF 70S. PATIENT HAS ACCORDION DRAIN TO RUQ ABDOMEN. PATIENT ALSO HAS CHRONIC BUCHANAN CATHETER. BUCHANAN CATHETER PATENT AND DRAINING BY GRAVITY. SECUREMENT DEVICE ATTACHED. AT START OF SHIFT, PATIENT C/O ITCHING ON BACK. GAVE PATIENT BENADRYL. NO ACUTE CHANGES OVERNIGHT.
[2024-02-29 06:07] VITALS: BP 122/66
--- NOTE | 2024-02-29 06:11 | NUR ---
Patient stated to not be disturbed in the AM for catheter care. Stated they would call before going to sleep. Did not call before sleeping. Family at bedside. Catheter care was done by [employer] MATE. Milner was emptied by RN.
[2024-02-29 07:17] LABS: Hematocrit 26.7 % (37.0-53.0); Hemoglobin 8.3 g/dL (13.5-17.5); Mean Corpuscular HGB 26.9 pg (26.0-34.0); Mean Corpuscular HGB Conc 31.1 g/dL (31.5-36.5); Mean Corpuscular Volume 87 fL (80-100); Platelet Count 262 K/mm3 (150-400); RDW Coefficient Variation 15.4 % (11.7-14.2); RDW Standard Deviation 46.6 fL (35.1-46.3); Red Blood Cell Count 3.08 M/mm3 (4.30-5.90); White Blood Cell Count 7.06 K/mm3 (4.00-11.30)
[2024-02-29] MEDS ORDERED: AMOCLA875 PO (12:23)
[2024-02-29] MEDS ORDERED: DIPH50 PO (12:24)
--- NOTE | 2024-02-29 13:27 | NUR ---
SHIFT/DISCHARGE SUMMARY: PATIENT HAS HAD NO NEW CHANGES THIS SHIFT. PATIENT ACCORDIAN DRAIN TO RUQ WAS DC'D BY DR. TURNER THIS AM AND PLACED DRESSING TO SITE. PATIENT HAS HAD NO EVENTS ON TELE, SR HR IN THE 70'S BPM c OCCASIONAL PVC. PATIENT RECEIVED IV ABX/SCHEDULED MEDS PER EMAR. VITAL SIGNS REVIEWED. PATIENT HAS CHRONIC BUCHANAN, PATENT DRAINING CLEAR YELLOW URINE TO GRAVITY. PATIENT HAS GREAT APPETITE, RECEIVED BEDBATH THIS PM. PIV DC'D. PATIENT DISCHARGE HOME. DISCHARGE INSTRUCTIONS PACKET GIVEN TO PATIENT. EDUCATED PATIENT c ADMITTING DX'S OF SEPSIS SECONDARY TO ABDOMINAL ABCESS, S/S, TX, NEW RX, F/U c DR. DOWNEY (GENERAL SURGEON) AND PCP. PATIENT AND SPOUSE AT BEDSIDE VERBALIZED UNDERSTANDING AND NO FURTHER QUESTIONS. RX WAS FAXED TO PATIENT PREFERRED PHARMACY([id number]). ALL PERSONAL BELONGINGS WERE SENT c THE PATIENT. PATIENT LEFT THE ROOM AT 1318, TRANSPORTED VIA WHEELCHAIR BY RAILWAY EQUIPMENT OPERATOR-GLADIS TO PATIENT ENTRANCE.
== END 2024-02-29 13:18 | disposition home or self-care (01) | DRG 871 ==
LOC: ER 09:08 → MEDS 14:48 → ERHOLD 14:48 → MEDS 16:45
PROVIDERS: Emergency Medicine; Family Medicine; Student in an Organized Health Care Education/Training Program; ADMIT Internal Medicine
PROC: 0W9G30Z Drainage of Peritoneal Cavity with Drainage Device, Percutaneous Approach (ICD-10-PCS; principal; 2024-02-24)
PROC: 3E03329 Introduction of Other Anti-infective into Peripheral Vein, Percutaneous Approach (ICD-10-PCS; 2024-02-24)
DX: A41.9 Sepsis, unspecified organism (principal); K65.1 Peritoneal abscess; E87.1 Hypo-osmolality and hyponatremia; E87.20 Acidosis, unspecified; N39.0 Urinary tract infection, site not specified; K91.86 Retained cholelithiasis following cholecystectomy; R65.20 Severe sepsis without septic shock; I10 Essential (primary) hypertension; E11.9 Type 2 diabetes mellitus without complications; H91.93 Unspecified hearing loss, bilateral; B95.2 Enterococcus as the cause of diseases classified elsewhere; B96.89 Other specified bacterial agents as the cause of diseases classified elsewhere; N40.0 Benign prostatic hyperplasia without lower urinary tract symptoms; K21.9 Gastro-esophageal reflux disease without esophagitis; I27.20 Pulmonary hypertension, unspecified; Y83.8 Other surgical procedures as the cause of abnormal reaction of the patient, or of later complication, without mention of misadventure at the time of the procedure; Z86.718 Personal history of other venous thrombosis and embolism; Z79.01 Long term (current) use of anticoagulants; Z88.5 Allergy status to narcotic agent; Z79.84 Long term (current) use of oral hypoglycemic drugs; Z79.82 Long term (current) use of aspirin; Z90.49 Acquired absence of other specified parts of digestive tract; Z85.828 Personal history of other malignant neoplasm of skin
CPT/HCPCS: 36415; 49405; 74176; 74177; 80048; 80053; 80202; 81001; 82947; 83605; 85025; 85027; 87040; 87070; 87075; 87077; 87086; 87186; 87205; 87428-QW; 88108; 96361; 96365-59; 99285-25; A9270; J0295; J1644; J3370; J7030; J7050; Q9967

== ENCOUNTER 2024-09-24 17:40 | Inpatient (IN) | payer MEDICARE, OTHER ==
[~2024-09-24] VITALS: Ht 160 cm; Wt 68.1 kg
[~2024-09-24 17:40] MED LIST changes: +DIPH50 PO; +LISI5 PO
[2024-09-24 18:45] LABS: BASOPHILS ABSOLUTE AUTO 0.04 K/mm3 (0.00-0.23); BASOPHILS PERCENT AUTO 0 % (0-2); EOSINOPHILS ABSOLUTE AUTO 0.02 K/mm3 (0.00-0.68); EOSINOPHILS PERCENT AUTO 0 % (0-6); Hematocrit 31.5 % (37.0-53.0); Hemoglobin 10.1 g/dL (13.5-17.5); IMMATURE GRAN ABSOLUTE AUTO 0.05 K/mm3 (0.00-0.10); IMMATURE GRAN PERCENT AUTO 0 % (0-1); LYMPHOCYTES ABSOLUTE AUTO 1.02 K/mm3 (0.84-5.20); LYMPHOCYTES PERCENT AUTO 7 % (21-46); MONOCYTES ABSOLUTE AUTO 1.43 K/mm3 (0.16-1.47); MONOCYTES PERCENT AUTO 10 % (4-13); Mean Corpuscular HGB Conc 32.1 g/dL (31.5-36.5); Mean Corpuscular Volume 87 fL (80-100); NEUTROPHILS ABSOLUTE AUTO 11.90 K/mm3 (1.96-9.15); NEUTROPHILS PERCENT AUTO 82 % (41-73); NRBC ABSOLUTE 0.00 K/mm3 (0.00-0.02); NRBC Auto 0.0 /100 WBC (0.0-0.2); Platelet Count 181 K/mm3 (150-400); RDW Coefficient Variation 13.6 % (11.7-14.2); RDW Standard Deviation 43.5 fL (35.1-46.3)
[2024-09-24 19:10] LABS: Alanine Aminotransfer (ALT/SGP 27.0 U/L (12-78); Albumin, Blood 2.5 g/dL (3.4-5.0); Albumin/Globulin Ratio 0.5 (0.8-1.8); Anion Gap 11.0 mmol/L (3-11); Aspartate Aminotrans (AST/SGOT 31.0 U/L (12-37); Bilirubin, Total 0.4 mg/dL (0.1-1.0); Blood Urea Nitrogen 17.0 mg/dL (8-24); CO2, Blood 19.0 mmol/L (21-32); Calcium, Blood 9.1 mg/dL (8.5-10.1); Chloride, Blood 100.0 mmol/L (98-108); Creatinine, Blood 0.56 mg/dL (0.60-1.20); Globulin, Blood 5.4 g/dL (2.2-4.0); Glucose, Blood 114.0 mg/dL (70-99); Potassium, Blood 4.4 mmol/L (3.5-5.5); Sodium, Blood 126.0 mmol/L (136-145); Total Protein, Blood 7.9 g/dL (6.4-8.2)
[2024-09-24 19:28] LABS: Source, Urine Clean Catch
[2024-09-24 19:41] LABS: Color, Urine Yellow (P-Yellow); Glucose Qualitative, Urine Neg (Neg); Ketones, Urine Neg (Neg); Leukocyte Esterase, Urine 3+ (Neg); Protein, Urine 2+ (Neg); Specific Gravity, Urine 1.015 (1.003-1.022); Urobilinogen, Urine NORM (Normal)
[2024-09-24 19:58] LABS: Bilirubin, Urine 1+ (Neg)
[2024-09-24 19:59] LABS: White Blood Cells, Urine 50-100 /hpf (0-5)
[2024-09-24] MEDS ORDERED: CefTRIAXone Sodium 1,000 MG in NS 50 ML IV ONE (20:25)
[2024-09-24] MEDS ORDERED: Ampicillin Sod/Sulbactam Sod 3 GM in NS 100 ML IV ONE (20:30)
[2024-09-24] MEDS ORDERED: NS 1,000 ML IV SCH (20:40)
[2024-09-24 22:52] VITALS: BP 169/78
[2024-09-24 23:45] VITALS: BP 159/77
[2024-09-25] MEDS ORDERED: Ampicillin Sod/Sulbactam Sod 3 GM in NS 100 ML IV SCH (03:00)
[2024-09-25 03:51] VITALS: BP 141/76
[2024-09-25 05:34] LABS: Hematocrit 29.9 % (37.0-53.0); Hemoglobin 9.5 g/dL (13.5-17.5); Mean Corpuscular HGB Conc 31.8 g/dL (31.5-36.5); Mean Corpuscular Volume 87 fL (80-100); NRBC ABSOLUTE 0.00 K/mm3 (0.00-0.02); NRBC Auto 0.0 /100 WBC (0.0-0.2); Platelet Count 182 K/mm3 (150-400); RDW Coefficient Variation 13.5 % (11.7-14.2); RDW Standard Deviation 43.2 fL (35.1-46.3)
[2024-09-25 06:01] LABS: Anion Gap 8.0 mmol/L (3-11); Blood Urea Nitrogen 14.0 mg/dL (8-24); CO2, Blood 27.0 mmol/L (21-32); Calcium, Blood 8.7 mg/dL (8.5-10.1); Chloride, Blood 102.0 mmol/L (98-108); Creatinine, Blood 0.56 mg/dL (0.60-1.20); Glucose, Blood 127.0 mg/dL (70-99); Potassium, Blood 4.1 mmol/L (3.5-5.5); Sodium, Blood 133.0 mmol/L (136-145)
--- NOTE | 2024-09-25 06:07 | NUR ---
ADMITTED FROM ED DUE TO SEPSIS UTI. AMBULATORY, ALERT & ORIENTED, VSS BP SLIGHTLY ELEVATED DUE TO RECENT IV BOLUS GIVEN. APPEARS ASYMPTOMATIC WITH NO S/SX OR ANY DISTRESS. TELE HOOKED WITH NORMAL RHYTHM. MAINTAINED IV PATENCY AND INITIATED CONTINOUS IV. INSTRUCTED NPO P-MN FOR ABDI IN AM. SLEPT COMFORTABLY W/ NO CONCERN.
[2024-09-25] MEDS ORDERED: Insulin Human Lispro 100 Units/ML 3ML Syringe SC SCH (07:30)
[2024-09-25 07:44] VITALS: BP 144/73
[2024-09-25] MEDS ORDERED: Lactobacil 2-S.Thermo-Bifido 1 1 Cap PO SCH (09:00)
[2024-09-25] MEDS ORDERED: Enoxaparin 40 MG/0.4 ML SYR SC SCH (09:00)
--- NOTE | 2024-09-25 18:35 | NUR ---
SHIFT SUMMARY CLIENT IS AOX4. MEDICATION COMPLIANT. HAD ABDOMINAL CT TODAY. SHOWED REOCCURENT ABCESS TO RIGHT UPPER QUADRENT. REMAINS ON TELE, SINUS RYHTM AT 98. REQUIRED INSULIN COVERAGE FOR DINNER. EDUCATED CLIENT ON DIABETES AND DIET. IV ABT CONTINUES. BED IS IN LOW POSITION AND CALL LIGHT IS WITHIN REACH
[2024-09-25 20:14] VITALS: BP 155/75
[2024-09-25 23:43] VITALS: BP 112/49
--- NOTE | 2024-09-26 04:04 | NUR ---
SHIFT SUMMARY PATIENT HAD NO ACUTE CHANGES. ALERT ORIENTED AND SBA TO BSC. DENIES CHEST PAIN, SOB, AND N/V. VSS/AFEBRILE. PIVS INTACT. LR INFUSING @ 100 mL/HR. IV ABXS INFUSED. TELE MONITOR NSR 85. BUCHANAN PATENT AND DRAINING TO GRAVITY. SPOUSE PRESENT FIRST PART OF SHIFT. CALL LIGHT IN REACH. BED IN LOWEST POSITION. WILL CONTINUE TO MONITOR UNTIL DAY SHIFT NURSE ASSUMES CARE.
[2024-09-26 04:27] VITALS: BP 122/75
[2024-09-26 07:28] VITALS: BP 143/74
[2024-09-26] MEDS ORDERED: ASPI81CH PO (09:06)
[2024-09-26] MEDS ORDERED: MOBIC15 MG PO (09:07)
[2024-09-26] MEDS ORDERED: LIVALO2 MG PO (09:08)
[2024-09-26] MEDS ORDERED: FAMO20 PO (09:09)
[2024-09-26] MEDS ORDERED: Polyethylene Glycol 3350 17 gm PO PRN (11:15)
[2024-09-26 11:54] VITALS: BP 124/65
[2024-09-26] MEDS ORDERED: Dextran/Hypromellose/Glycerin 15 DROP/ML BTL BOTHEYES SCH (14:00)
[2024-09-26 15:06] VITALS: BP 147/67
--- NOTE | 2024-09-26 19:22 | NUR ---
SHIFT SUMMARY CLIENT AOX4. MEDICATION COMPLIANT. SEEN FOR SURGICAL CONSULT. NO NEW ORDERS RECEIVED. IV ABT CONTINUES. BUCHANAN REPLACED PER CLIENT REQUEST. CLIENT STATES IT HAD NOT BEEN REPLACED SINCE THE OF THE MONTH. IN ROOM VISITING ALL DAY. BED IN LOW POSITIION AND CALL LIGHT IS WITHIN REACH
[2024-09-26] MEDS ORDERED: Artificial Tear Opth Oint 3.5 GM BOTHEYES SCH (21:00)
[2024-09-26 21:03] VITALS: BP 149/77
[2024-09-26 22:44] VITALS: BP 164/83
[2024-09-27 00:17] VITALS: BP 164/82
--- NOTE | 2024-09-27 02:01 | NUR ---
PATIENT FEBRILE WITH LOW GRADE TEMP OF 99.1 AND NEXT 101.7 ON THIS RN BREAK. TEMP ELEVATED TO 103.0 IN [address] MCKEON NOTIFIED AND ORDERED TYLENOL 650 MG FOR FEVER. RECHECK AT 99.0. LR INFUSING @ 100mL/HR. PATIENT RESTING WITH SPOUSE STAYING OVERNIGHT. WCTM.
--- NOTE | 2024-09-27 04:07 | NUR ---
SHIFT SUMMARY PATIENT FEBRILE THIS SHIFT (SEE NOTE). ALERT ORIENTED AND ONE ASSIST. BUCHANAN PATENT AND DRAINING TO GRAVITY. DENIES CHEST PAIN, SOB, AND N/V. PIV INTACT. LR INFUSING @ 100 mL/HR. IV ABXS INFUSED. CBG 180. SPOUSE STAYED OVERNIGHT. CALL LIGHT IN REACH. BED IN LOWEST POSITION. WILL CONTINUE TO MONITOR UNTIL DAY SHIFT NURSE ASSUMES CARE.
[2024-09-27 07:08] LABS: Hematocrit 30.6 % (37.0-53.0); Hemoglobin 9.6 g/dL (13.5-17.5); Mean Corpuscular HGB Conc 31.4 g/dL (31.5-36.5); Mean Corpuscular Volume 89 fL (80-100); NRBC ABSOLUTE 0.00 K/mm3 (0.00-0.02); NRBC Auto 0.0 /100 WBC (0.0-0.2); Platelet Count 173 K/mm3 (150-400); RDW Coefficient Variation 13.9 % (11.7-14.2); RDW Standard Deviation 45.0 fL (35.1-46.3)
[2024-09-27 07:24] LABS: Magnesium, Blood 1.3 mg/dL (1.6-2.4)
[2024-09-27 07:25] VITALS: BP 157/85
[2024-09-27 07:25] LABS: Albumin, Blood 2.1 g/dL (3.4-5.0); Anion Gap 8 mmol/L (3-11); Blood Urea Nitrogen 9 mg/dL (8-24); CO2, Blood 25 mmol/L (21-32); Calcium, Blood 9.2 mg/dL (8.5-10.1); Chloride, Blood 104 mmol/L (98-108); Creatinine, Blood 0.60 mg/dL (0.60-1.20); Glucose, Blood 141 mg/dL (70-99); Phosphorus, Blood 3.4 mg/dL (2.5-4.9); Potassium, Blood 4.3 mmol/L (3.5-5.5); Sodium, Blood 133 mmol/L (136-145)
[2024-09-27] MEDS ORDERED: NS 250 ML IV PRN (08:55)
[2024-09-27 11:35] VITALS: BP 131/71
[2024-09-27] MEDS ORDERED: Magnesium Sulf 2 GM/Water 50ML 50 ML IV STA (11:50)
[2024-09-27 15:40] VITALS: BP 148/82
--- NOTE | 2024-09-27 18:08 | NUR ---
SHIFT SUMMARY PT RECIEVING LR @ 100 ML/HR T/O THE DAY. DR. TURNER IN TO SEE THE PATIENT THIS AM AND ORDERED A HIDA SCAN. SCAN WAS COMPLETED TODAY. PT TOLERATING MEALS WELL, BUT HAS A SMALL APPETITE. PT HAS ONLY REQUIRED PAIN MEDS ONCE TODAY FOR A HEADACHE. A FEBRILE TODAY. BUCHANAN CHANGED YESTERDAY PER REPORT. VOIDING WELL. CATH CARE COMPLETED TODAY. NO OTHER ACUTE CHANGES IN ASSESSMENT AT THIS TIME. VS REVIEWED. CALL LIGHT IN REACH. DENIES OTHER NEEDS AT THIS TIME.
[2024-09-27 19:45] VITALS: BP 132/71
[2024-09-27 23:58] VITALS: BP 159/80
[2024-09-28] VITALS (13 sets, daily range): BP systolic 112–138; BP diastolic 55–73
--- NOTE | 2024-09-28 05:54 | NUR ---
SHIFT SUMMARY A&OX 4. ABLE TO MAKE NEEDS KNOWN. BUCHANAN CATHETER PATENT AND DRAINING LIGHT YELLOW URINE. TOLERATING ABX WELL WELL LR. HAD AN EPISODE OF OVER HEATIING DURING SHIFT. BLANKETS REMOVED, COOL WET WASHCLOTH APPLIED AND TYLENOL GIVEN FOR REPORTED HEADACHE. PT BECAME MORE COMFORTABLE AND WAS ABLE TO SLEEP AFTER THAT. PT CURRENTLY SLEEPING IN BED AT LOWEST POSITION WITH CALL LIGHT WITHIN REACH AND SPOUSE AT BEDSIDE.
[2024-09-28 10:25] LABS: Magnesium, Blood 1.5 mg/dL (1.6-2.4); Phosphorus, Blood 3.1 mg/dL (2.5-4.9)
[2024-09-28] MEDS ORDERED: Magnesium Sulf 2 GM/Water 50ML 50 ML IV ONE (11:05)
[2024-09-28 11:22] LABS: Hematocrit 26.1 % (37.0-53.0); Hemoglobin 8.6 g/dL (13.5-17.5); Mean Corpuscular HGB Conc 33.0 g/dL (31.5-36.5); Mean Corpuscular Volume 85 fL (80-100); NRBC ABSOLUTE 0.00 K/mm3 (0.00-0.02); NRBC Auto 0.0 /100 WBC (0.0-0.2); Platelet Count 178 K/mm3 (150-400); RDW Coefficient Variation 13.9 % (11.7-14.2); RDW Standard Deviation 43.4 fL (35.1-46.3)
[2024-09-28 11:50] LABS: Anion Gap 6.0 mmol/L (3-11); Blood Urea Nitrogen 9.0 mg/dL (8-24); CO2, Blood 28.0 mmol/L (21-32); Calcium, Blood 8.6 mg/dL (8.5-10.1); Chloride, Blood 103.0 mmol/L (98-108); Creatinine, Blood 0.56 mg/dL (0.60-1.20); Glucose, Blood 138.0 mg/dL (70-99); Potassium, Blood 3.8 mmol/L (3.5-5.5); Sodium, Blood 133.0 mmol/L (136-145)
--- NOTE | 2024-09-28 13:27 | NUR ---
PATIENT'S GOLD RING REMOVED BY ISAMAR AND GIVEN TO HIS . PLAN FOR BILAT HEARING AIDES TO BE LEFT INTACT UNLESS THE ANESTHESIOLOGIST WOULD LIKE REMOVED FOR SURGERY. GLASSES TO BE BROUGHT TO PACU FOR SAFE KEEPING. NEW IV PLACED DUE TO IV TO RIGHT FA PULLING OUT DURING TRANSPORT. CATHETER INTACT. TELE REMAINES INTACT AND TO BE REMOVED UPON TRANSPORT TO OR.
[2024-09-28] MEDS ORDERED: Bupivacaine 0.5% HCl 5 MG/ML 30MLVIAL ONE (13:37)
[2024-09-28] MEDS ORDERED: Dexmedetomidine HCL 200 MCG / 2 ML ONE (13:59)
[2024-09-28] MEDS ORDERED: Dexamethasone Sod Phos 10 MG/ML 1ML VIAL ONE (14:17)
[2024-09-28] MEDS ORDERED: Ondansetron HCl 2 MG / ML 2ML Vial ONE (14:17)
[2024-09-28] MEDS ORDERED: Phenylephrine HCl 100 MCG/ML-NS 10MLSYR (1MG/10ML) ONE (14:17)
[2024-09-28] MEDS ORDERED: Metoclopramide HCl 5MG / ML 2ML Vial IV PRN (14:30)
[2024-09-28] MEDS ORDERED: HYDROmorphone HCl/Pf 1MG SYR IV PRN ×2 (14:30→16:40)
[2024-09-28] MEDS ORDERED: HYDROcodone 5-APAP 325 TAB PO PRN (16:45)
[2024-09-28] MEDS ORDERED: OMEP20ER PO (18:23)
--- NOTE | 2024-09-28 18:41 | NUR ---
SHIFT SUMMARY PT NPO TODAY IN PREPARATION FOR HIS SURGERY. I&D COMPLETED BY DR. TURNER TODAY AND RETURNED TO THE ROOM THIS AFTERNOON. DRESSING TO ABD SECURE WITH SOME SERISANGUNAOUS DRAINAGE TO ABD PAD. PT ANXIOUS ABOUT RESULTS OF THE SURGERY. VS REVIEWED. CALL LIGHT IN REACH. PT MEDICATED WITH NORCO TO HELP WITH PAIN IN HIS ABD FROM SURGERY. NO OTHER ACUTE CHANGES IN ASSESSMENT AT THIS TIME.
[2024-09-29] VITALS (7 sets, daily range): BP systolic 123–155; BP diastolic 67–87
--- NOTE | 2024-09-29 00:01 | NUR ---
DISCUSSED ABX ADMINISTRATION WITH PHARMACY AT 2100 MED ADMINISTRATION TIME. DUE TO PT GOING TO OR AND RECEIVING ABX AT EARLIER TIME, PHARMACY RECOMMENDED HOLDING 2100 DOSE AND GIVING 0300 DOSE EARLY TO MAINTAIN Q 6 HOUR ADMINISTRATION.
--- NOTE | 2024-09-29 05:59 | NUR ---
SHIFT SUMMARY A&OX4. ABLE TO MAKE ALL NEEDS KNOWN. LR HAS RUN CONTINOUSLY AT 100 MLS PER ORDER. PT ABLE TO TAKE ALL PILLS WHOLE WITH WATER. RUQ I&D SITE DRESSING SATURATED WITH SEROSANGUENOUS DRAINAGE. DRESSING CHANGED. PINROSE DRAIN PRESENT AND DRAINING SUCCESSFULLY. SITE CLEANSED WITH WOUND CLEANSER AND STERILE GAUZE APPLIED OVER PINROSE DRAIN AND COVERED BY ABD PADS AND MEDIPORE TAPE. PT TOLERATED DRESSING CHANGE WELL. DISCUSSED HOW TO DO THIS BUT PT WILL NEED FURTHER EDUCATION WELL HIS WHO WILL BE ASSISTING IN HIS CARE. PT WAS ABLE TO REST COMFORTABLY IN HIS BED IN LOWEST POSITION AND CALL LIGHT WITHIN REACH.
[2024-09-29 06:25] LABS: Hematocrit 28.1 % (37.0-53.0); Hemoglobin 9.0 g/dL (13.5-17.5); Mean Corpuscular HGB Conc 32.0 g/dL (31.5-36.5); Mean Corpuscular Volume 87 fL (80-100); NRBC ABSOLUTE 0.00 K/mm3 (0.00-0.02); NRBC Auto 0.0 /100 WBC (0.0-0.2); Platelet Count 178 K/mm3 (150-400); RDW Coefficient Variation 13.8 % (11.7-14.2); RDW Standard Deviation 44.1 fL (35.1-46.3)
[2024-09-29 07:05] LABS: Anion Gap 4.0 mmol/L (3-11); Blood Urea Nitrogen 13.0 mg/dL (8-24); CO2, Blood 25.0 mmol/L (21-32); Calcium, Blood 8.6 mg/dL (8.5-10.1); Chloride, Blood 105.0 mmol/L (98-108); Creatinine, Blood 0.55 mg/dL (0.60-1.20); Glucose, Blood 190.0 mg/dL (70-99); Potassium, Blood 4.4 mmol/L (3.5-5.5); Sodium, Blood 130.0 mmol/L (136-145)
--- NOTE | 2024-09-29 17:19 | NUR ---
PATIENT AWAKE AND ALERT THIS SHIFT WITH NO COMPLAINTS OF PAIN. PATIENT DECLINED PT THIS AFTERNOON STATING HE WANTED TO REST. ABLE TO EXPRESS NEEDS, CALL LIGHT WITHIN REACH.
[2024-09-30 03:23] VITALS: BP 153/72
[2024-09-30 05:42] LABS: Anion Gap 11.0 mmol/L (3-11); Blood Urea Nitrogen 18.0 mg/dL (8-24); CO2, Blood 25.0 mmol/L (21-32); Calcium, Blood 8.3 mg/dL (8.5-10.1); Chloride, Blood 104.0 mmol/L (98-108); Creatinine, Blood 0.61 mg/dL (0.60-1.20); Glucose, Blood 159.0 mg/dL (70-99); Magnesium, Blood 1.8 mg/dL (1.6-2.4); Potassium, Blood 4.5 mmol/L (3.5-5.5); Sodium, Blood 135.0 mmol/L (136-145)
[2024-09-30 07:17] VITALS: BP 165/78
--- NOTE | 2024-09-30 07:39 | NUR ---
SHIFT SUMMARY AT START OF SHIFT, SPOUSE AT BEDSIDE. SPOUSE LEFT APPROX 2200. 2245 480ML WATER GIVEN TO PT. APPOX 0100, PT HAVING 5/10 PAIN. MEDICATED PER EMAR. PT STATED HIS RT ABDOMEN AT THE SURGICAL SITE FELT LIKE IT WAS PULSATING. PASSED ALONG TO DAY SHIFT. PT PLEASANT AND COOPERATIVE WITH CARE. CALL LIGHT WITHIN REACH.
[2024-09-30 11:42] VITALS: BP 142/69
[2024-09-30 15:34] VITALS: BP 124/65
[2024-09-30 19:18] VITALS: BP 129/77
--- NOTE | 2024-09-30 19:21 | NUR ---
SHIFT SUMMARY: PATIENT A+O X4 AND COOPERATIVE WITH CARE. PLAN TO CHANGE ABX FROM IV TO PO. FIRST PO DOSE TONIGHT AT 2100. SURGICAL SITE CDI. PAIN MANAGED WITH HYDROCODONE, SEE EMAR FOR DETAILS. BUCHANAN DRAINING TO GRAVITY WITH CLEAR YELLOW URINE OUTPUT. NO CURRENT NEEDS AT THIS TIME, WILL CONTINUE TO MONITOR.
[2024-09-30 23:53] VITALS: BP 133/75
[2024-10-01 03:24] VITALS: BP 125/77
--- NOTE | 2024-10-01 06:32 | NUR ---
SHIFT SUMMARY AT START OF SHIFT, PT SPOUSE AT BEDSIDE, BUT ON HER WAY OUT. PT LYING IN BED RESTING. PT MEDICATED PER EMAR. PT ABLE TO REPOSITION INDEPENDENTLY. PT SLEEPING SOUNDLY. PT HAD 2250ML OUTPUT IN URINE COLLECTION BAG APPROX 0215. CATH CARE COMPLETED, AND PT LYING IN BED GETTING MORE SLEEP.
[2024-10-01 07:16] VITALS: BP 130/82
[2024-10-01 11:13] VITALS: BP 131/68
[2024-10-01] MEDS ORDERED: Artificial Tear15 ML BOTHEYES (11:37)
[2024-10-01] MEDS ORDERED: AMOCLA875 PO (11:41)
[2024-10-01] MEDS ORDERED: VISBIOME 112.51 EACH PO (11:43)
[2024-10-01] MEDS ORDERED: HYDR1TAB94 PO (11:43)
--- NOTE | 2024-10-01 12:48 | NUR ---
PT WHEELED TO DOOR AT 1246 BY FEDERICO
--- NOTE | 2024-10-01 14:07 | NUR ---
DISCHARGE SUMMARY CLIENT AOX4. MEDICATION COMPLIANT. SEEN BY PROVIDER AND SURGEON. DISCHARGE ORDERS PLACED. IV ACCESS AND TELEMETRY DISCONTINUED. DRESSING OVER SHARRI DRAIN CHANGED. PROCEDURE EXPLAINED TO CLIENT'S AND WOUND CARE SUPPLIES GIVEN TO COVER THE WEEKEND. MEDICATION LIST FAXED TO [facility] PER CLIENT REQUEST. DISCHARGE PACKET DISCUSSED WITH CLIENT AND SPOUSE, WITH TIME GIVEN FOR QUESTIONS. NEITHER VOICED QUESTIONS CONCERNING DISCHARGE OR AFTERCARE. ORIGINAL PRESCRIPTION FOR NORCO GIVEN TO CLIENT'S . COPY PLACED IN CHART. CLIENT LEFT THE UNIT VIA WHEELCHAIR ESCORTED BY SPOUSE AND NURSING STAFF.
== END 2024-10-01 12:46 | disposition home health service (06) | DRG 853 ==
LOC: ER 17:40 → MEDS 17:41 → ENPENDDIS 10-01 08:49 → MEDS 10-01 12:46
PROVIDERS: Internal Medicine; Nurse Practitioner Acute Care; Student in an Organized Health Care Education/Training Program; ADMIT Student in an Organized Health Care Education/Training Program
DX: A41.9 Sepsis, unspecified organism (principal); G92.8 Other toxic encephalopathy; E87.1 Hypo-osmolality and hyponatremia; R18.8 Other ascites; N39.0 Urinary tract infection, site not specified; K68.11 Postprocedural retroperitoneal abscess; E83.42 Hypomagnesemia; N40.0 Benign prostatic hyperplasia without lower urinary tract symptoms; E86.0 Dehydration; I10 Essential (primary) hypertension; E11.9 Type 2 diabetes mellitus without complications; I45.10 Unspecified right bundle-branch block; Z90.49 Acquired absence of other specified parts of digestive tract; Z98.49 Cataract extraction status, unspecified eye; Z79.84 Long term (current) use of oral hypoglycemic drugs; Z79.899 Other long term (current) drug therapy; Z88.8 Allergy status to other drugs, medicaments and biological substances; Z98.890 Other specified postprocedural states; Z90.79 Acquired absence of other genital organ(s)
CPT/HCPCS: 36415; 71046; 74177; 78226; 80048; 80053; 80069; 81001; 82947; 83605; 83690; 83735; 84100; 84484; 85025; 85027; 87040; 87070; 87075; 87086; 87205; 93005; 93010; 96361; 96365; 96366; 96372; 96374; 96376; 97116; 97161; 99285-25; A9270; A9537; G0378; J0295; J1100; J1650; J2371; J2405; J2704; J3475; J7030; J7050; J7120; Q9967

== ENCOUNTER 2024-10-04 14:10 | Inpatient (IN) | payer MEDICARE, OTHER ==
[~2024-10-04] VITALS: Ht 157.5 cm; Wt 69.7 kg
[~2024-10-04 14:10] MED LIST changes: +8 HOUR ACETAMI650 MG PO; -ACET325 PO; +Artificial Tear15 ML BOTHEYES; -B-12500 MC2 PO; +FAMO20 PO; +HYDR1TAB94 PO; +Vitamin B Comple1 EA PO
[2024-10-04 15:46] LABS: BASOPHILS ABSOLUTE AUTO 0.04 K/mm3 (0.00-0.23); BASOPHILS PERCENT AUTO 0 % (0-2); EOSINOPHILS ABSOLUTE AUTO 0.09 K/mm3 (0.00-0.68); EOSINOPHILS PERCENT AUTO 1 % (0-6); Hematocrit 31.9 % (37.0-53.0); Hemoglobin 10.1 g/dL (13.5-17.5); IMMATURE GRAN ABSOLUTE AUTO 0.08 K/mm3 (0.00-0.10); IMMATURE GRAN PERCENT AUTO 1 % (0-1); LYMPHOCYTES ABSOLUTE AUTO 1.17 K/mm3 (0.84-5.20); LYMPHOCYTES PERCENT AUTO 8 % (21-46); MONOCYTES ABSOLUTE AUTO 0.72 K/mm3 (0.16-1.47); MONOCYTES PERCENT AUTO 5 % (4-13); Mean Corpuscular HGB Conc 31.7 g/dL (31.5-36.5); Mean Corpuscular Volume 88 fL (80-100); NEUTROPHILS ABSOLUTE AUTO 11.76 K/mm3 (1.96-9.15); NEUTROPHILS PERCENT AUTO 85 % (41-73); NRBC ABSOLUTE 0.00 K/mm3 (0.00-0.02); NRBC Auto 0.0 /100 WBC (0.0-0.2); Platelet Count 220 K/mm3 (150-400); RDW Coefficient Variation 14.8 % (11.7-14.2); RDW Standard Deviation 46.2 fL (35.1-46.3)
[2024-10-04 16:16] LABS: Alanine Aminotransfer (ALT/SGP 71.0 U/L (12-78); Albumin, Blood 2.4 g/dL (3.4-5.0); Albumin/Globulin Ratio 0.5 (0.8-1.8); Anion Gap 8.0 mmol/L (3-11); Aspartate Aminotrans (AST/SGOT 45.0 U/L (12-37); Bilirubin, Total 0.2 mg/dL (0.1-1.0); Blood Urea Nitrogen 10.0 mg/dL (8-24); CO2, Blood 28.0 mmol/L (21-32); Calcium, Blood 9.0 mg/dL (8.5-10.1); Chloride, Blood 102.0 mmol/L (98-108); Creatinine, Blood 0.62 mg/dL (0.60-1.20); Globulin, Blood 4.6 g/dL (2.2-4.0); Glucose, Blood 227.0 mg/dL (70-99); Potassium, Blood 4.4 mmol/L (3.5-5.5); Sodium, Blood 134.0 mmol/L (136-145); Total Protein, Blood 7.0 g/dL (6.4-8.2)
[2024-10-04] MEDS ORDERED: Piperacillin/Tazobactam Sod 4.5 GM in NS 100 ML IV ONE (19:35)
[2024-10-04] MEDS ORDERED: Ondansetron HCl 2 MG / ML 2ML Vial IV PRN (20:55)
[2024-10-04] MEDS ORDERED: NS 1,000 ML IV SCH (21:00)
[2024-10-04] MEDS ORDERED: HYDROcodone 5-APAP 325 TAB PO PRN (21:40)
[2024-10-04] MEDS ORDERED: Insulin Regular 100 UNIT/ML 10ML Vial SC SCH (22:00)
[2024-10-04] MEDS ORDERED: Lactobacil 2-S.Thermo-Bifido 1 1 Cap PO SCH (23:00)
[2024-10-04 23:41] VITALS: BP 148/69
[2024-10-05 00:22] LABS: Prothrombin Time Results 11.6 Sec (9.7-11.5)
[2024-10-05 00:58] LABS: BASOPHILS ABSOLUTE AUTO 0.04 K/mm3 (0.00-0.23); BASOPHILS PERCENT AUTO 0 % (0-2); EOSINOPHILS ABSOLUTE AUTO 0.09 K/mm3 (0.00-0.68); EOSINOPHILS PERCENT AUTO 1 % (0-6); Hematocrit 30.6 % (37.0-53.0); Hemoglobin 9.4 g/dL (13.5-17.5); IMMATURE GRAN ABSOLUTE AUTO 0.09 K/mm3 (0.00-0.10); IMMATURE GRAN PERCENT AUTO 1 % (0-1); LYMPHOCYTES ABSOLUTE AUTO 1.24 K/mm3 (0.84-5.20); LYMPHOCYTES PERCENT AUTO 12 % (21-46); MONOCYTES ABSOLUTE AUTO 0.76 K/mm3 (0.16-1.47); MONOCYTES PERCENT AUTO 7 % (4-13); Mean Corpuscular HGB Conc 30.7 g/dL (31.5-36.5); Mean Corpuscular Volume 91 fL (80-100); NEUTROPHILS ABSOLUTE AUTO 8.27 K/mm3 (1.96-9.15); NEUTROPHILS PERCENT AUTO 79 % (41-73); NRBC ABSOLUTE 0.00 K/mm3 (0.00-0.02); NRBC Auto 0.0 /100 WBC (0.0-0.2); Platelet Count 218 K/mm3 (150-400); RDW Coefficient Variation 14.9 % (11.7-14.2); RDW Standard Deviation 47.2 fL (35.1-46.3)
[2024-10-05] MEDS ORDERED: Piperacillin/Tazobactam Sod 3.375 GM in NS 100 ML IV SCH (01:00)
[2024-10-05 01:17] LABS: Alanine Aminotransfer (ALT/SGP 60.0 U/L (12-78); Albumin, Blood 2.2 g/dL (3.4-5.0); Albumin/Globulin Ratio 0.5 (0.8-1.8); Anion Gap 10.0 mmol/L (3-11); Aspartate Aminotrans (AST/SGOT 40.0 U/L (12-37); Bilirubin, Total 0.2 mg/dL (0.1-1.0); Blood Urea Nitrogen 8.0 mg/dL (8-24); CO2, Blood 26.0 mmol/L (21-32); Calcium, Blood 8.5 mg/dL (8.5-10.1); Chloride, Blood 105.0 mmol/L (98-108); Creatinine, Blood 0.69 mg/dL (0.60-1.20); Globulin, Blood 4.3 g/dL (2.2-4.0); Glucose, Blood 187.0 mg/dL (70-99); Potassium, Blood 4.3 mmol/L (3.5-5.5); Sodium, Blood 137.0 mmol/L (136-145); Total Protein, Blood 6.5 g/dL (6.4-8.2)
--- NOTE | 2024-10-05 04:47 | NUR ---
PT ADMITTED FROM ED WITH SEPSIS. A&O X4, VS WNL, BUT PT STATES HIS BP WAS ELEVATED FROM HIS NORM. PT HAS SHARRI DRAIN IN RLQ OF ABDOMEN, AREA IS SLIGHTLY RED, AND HAS PURULENT DRAINAGE, DRESSING CHANGED. BUCHANAN CHANGED ONCE TO FLOOR, URINE WAS BLOODY WHEN CATHED. TELE NSR, CBG 181, AND PT STATES THIS IS HIGH FOR HIM, SSI ADMINISTERED. ON IVABX, AND AWAITING FOR SURGERY CONSULT. WILL D/C HOME WITH .
[2024-10-05 05:27] VITALS: BP 145/70
[2024-10-05 07:24] VITALS: BP 146/68
[2024-10-05] MEDS ORDERED: Lactobacil 2-S.Thermo-Bifido 1 1 Cap PO SCH (09:00)
[2024-10-05] MEDS ORDERED: Enoxaparin 40 MG/0.4 ML SYR SC SCH (09:00)
[2024-10-05 10:59] VITALS: BP 147/76
[2024-10-05 14:55] LABS: Ferritin, Serum 195.0 ng/mL (26-388); Total Iron Binding Capacity 375.0 ug/dL (250-450)
[2024-10-05 15:49] LABS: Source, Urine Foley catheter
[2024-10-05 15:55] LABS: Bilirubin, Urine Neg (Neg); Glucose Qualitative, Urine Neg (Neg); Ketones, Urine Neg (Neg); Leukocyte Esterase, Urine Neg (Neg); Protein, Urine Neg (Neg); Specific Gravity, Urine 1.005 (1.003-1.022); Urobilinogen, Urine NORM (Normal)
[2024-10-05 16:08] LABS: Color, Urine Pale Yellow (P-Yellow)
[2024-10-05 16:09] LABS: White Blood Cells, Urine 0-2 /hpf (0-5)
[2024-10-05 16:45] VITALS: BP 145/71
[2024-10-05 17:40] LABS: Campylobacter Sp Not Detected (NOT DETECT); E. Coli O157 Not Detected (NOT DETECT); Enteroaggregative E. coli-EAEC Not Detected (NOT DETECT); Enteropathogenic E. coli-EPEC Not Detected (NOT DETECT); Enterotoxigenic E. coli-ETEC Not Detected (NOT DETECT); Salmonella Sp Not Detected (NOT DETECT); Shiga Toxin-prod E. coli-STEC Not Detected (NOT DETECT); Shigella/Enteroin E. coli-EIEC Not Detected (NOT DETECT); Vibrio Sp Not Detected (NOT DETECT)
--- NOTE | 2024-10-05 17:46 | NUR ---
SHIFT SUMMARY: PATIENT A+O X4 AND ABLE TO MAKE NEEDS KNOWN. PATIENT WAS NPO TODAY FOLLOWING A SURGERY CONSULT. PATIENT IS NOW EATING AND IS TOLERATING WELL. DR. SINGH DISCUSSED PLAN WITH PATIENT. DR. DOWNEY COLLECTED WOUND CULTURE NEAR DRAINAGE SITE. PATIENT GIVEN ABX THROUGHOUT THIS SHIFT WITH GREAT IMPROVEMENT. BUCHANAN IS DRAINING TO GRAVITY WITH CLEAR YELLOW URINE OUTPUT. LUNGS CLEAR THROUGHOUT. S1 S2 HEARD ON ASCULTATION. TELE RUNNING SINUS 70'S. PLAN TO CONTINUE IV ABX TREATMENT AT THIS TIME.
[2024-10-05 20:03] VITALS: BP 156/72
[2024-10-06 00:21] VITALS: BP 164/82
[2024-10-06 06:20] VITALS: BP 160/84
[2024-10-06 07:18] VITALS: BP 175/78
--- NOTE | 2024-10-06 07:23 | NUR ---
ASSUMPTION OF CARE: THIS RN ASSUMED CARE OF PATIENT. AWAKE DURING SHIFT CHANGE REPORT. LYING SUPINE IN BED c HOB SLIGHTLY ELEVATED. BREATHING EVEN AND UNLABORED c RA. BUCHANAN PATENT AND DRAINING LIGHT YELLOW URINE TO GRAVITY. MOST RECENT TELE STRIP IN CHART REVIEWED AND INTERPRETED SR c BBB & PVC @ 64bpm. NS @ 100mL/hr. BED IN LOWEST POSITION. CALL LIGHT WITHIN REACH. ACUTE NEEDS MET.
[2024-10-06] MEDS ORDERED: Iron Dextran 50 MG / ML 2ML Vial IV ONE (08:35)
[2024-10-06 08:39] LABS: BASOPHILS ABSOLUTE AUTO 0.03 K/mm3 (0.00-0.23); BASOPHILS PERCENT AUTO 0 % (0-2); EOSINOPHILS ABSOLUTE AUTO 0.11 K/mm3 (0.00-0.68); EOSINOPHILS PERCENT AUTO 1 % (0-6); Hematocrit 34.5 % (37.0-53.0); Hemoglobin 10.8 g/dL (13.5-17.5); IMMATURE GRAN ABSOLUTE AUTO 0.04 K/mm3 (0.00-0.10); IMMATURE GRAN PERCENT AUTO 1 % (0-1); LYMPHOCYTES ABSOLUTE AUTO 1.24 K/mm3 (0.84-5.20); LYMPHOCYTES PERCENT AUTO 16 % (21-46); MONOCYTES ABSOLUTE AUTO 0.72 K/mm3 (0.16-1.47); MONOCYTES PERCENT AUTO 9 % (4-13); Mean Corpuscular HGB Conc 31.3 g/dL (31.5-36.5); Mean Corpuscular Volume 88 fL (80-100); NEUTROPHILS ABSOLUTE AUTO 5.58 K/mm3 (1.96-9.15); NEUTROPHILS PERCENT AUTO 72 % (41-73); NRBC ABSOLUTE 0.00 K/mm3 (0.00-0.02); NRBC Auto 0.0 /100 WBC (0.0-0.2); Platelet Count 173 K/mm3 (150-400); RDW Coefficient Variation 15.4 % (11.7-14.2); RDW Standard Deviation 47.7 fL (35.1-46.3)
[2024-10-06 08:57] LABS: Anion Gap 8.0 mmol/L (3-11); Blood Urea Nitrogen 8.0 mg/dL (8-24); CO2, Blood 28.0 mmol/L (21-32); Calcium, Blood 8.9 mg/dL (8.5-10.1); Chloride, Blood 105.0 mmol/L (98-108); Creatinine, Blood 0.8 mg/dL (0.60-1.20); Glucose, Blood 136.0 mg/dL (70-99); Potassium, Blood 4.0 mmol/L (3.5-5.5); Sodium, Blood 137.0 mmol/L (136-145)
[2024-10-06] MEDS ORDERED: Iron Dextran 975 MG in NS 250 ML IV ONE (10:00)
[2024-10-06 11:37] VITALS: BP 152/74
[2024-10-06] MEDS ORDERED: Prochlorperazine Edisylate 10 mg Vial IV PRN (12:00)
[2024-10-06] MEDS ORDERED: Ciprofloxacin 400MG/D5 200ML 200 ML IV SCH (13:00)
[2024-10-06] MEDS ORDERED: MetroNIDAZOLE 500MG/NS 100 ml 100 ML IV SCH (16:00)
[2024-10-06 16:21] VITALS: BP 173/79
[2024-10-06] MEDS ORDERED: Insulin Human Lispro 100 Units/ML 3ML Syringe SC SCH (16:30)
--- NOTE | 2024-10-06 18:41 | NUR ---
SHIFT SUMMARY PT IS A/OX4. PLEASANT AND COOPERATIVE WITH CARE. PT IS ON RA AND TELE GOT D/C'd. PT HAS A BUCHANAN CATHETER WHICH IS PATENT AND PULLING TO GRAVITY. PT IS A 1 PERSON ASSIST. MED CHANGES ON ABX AND NEW IV SITE ON LFA. AT BEDSIDE MOST OF DAY. USES CALL LIGHT APPROPRIATELY.
--- NOTE | 2024-10-06 18:43 | NUR ---
THIS RN HAS PERSONALLY REVIEWED DOCUMENTATION BY YONG CHRISTINA.
--- NOTE | 2024-10-06 18:46 | NUR ---
PATIENT NOTED TO HAVE ELEVATING SBP >170. T.O. FOR HYDRALAZINE 10MG IV Q6H PRN.
[2024-10-06] MEDS ORDERED: CHLO4 PO (18:49)
[2024-10-06 20:44] VITALS: BP 175/72
[2024-10-06] MEDS ORDERED: Insulin Glargine-Yfgn 100 Unit/mL 3 ML SYR SC SCH (21:00)
[2024-10-07] MEDS ORDERED: HydrALAZINE HCl 20 MG / ML 1ML Vial IV PRN
[2024-10-07 03:00] VITALS: BP 163/77
--- NOTE | 2024-10-07 06:42 | NUR ---
DEAF TEACHER SUMMARY NO ACUTE CHANGES. PT A/OX4. ABLE TO MAKE NEEDS KNOWN. REGULAR INTERVAL ROUNDING T/O THE SHIFT. PT C/O OF PAIN IN RIGHT SIDE ABD AND HEADACHE. MEDS GIVEN PER APR. BLOOD PRESSURE ELEVATED WITH SYSTOLIC IN 170'S; PRN HYDRALAZINE GIVEN. NS CONT FLUIDS RUNNING. CHRONIC BUCHANAN IN PLACE; PATENT. CALL LIGHT ACCESSIBLE. CARE WILL CONTINUE UNTIL REPORT GIVEN TO ONCOMING NURSE.
[2024-10-07 07:32] VITALS: BP 131/68
[2024-10-07 15:42] VITALS: BP 127/67
--- NOTE | 2024-10-07 19:22 | NUR ---
END OF SHIFT SUMMARY: A&Ox4. PLEASANT AND COOPERATIVE WITH CARE. CALLS APPROPRIATELY AND IS ABLE TO ADVOCATE NEEDS EFFECTIVELY. VSS. BREATHING EVEN AND UNLABORED c RA. CONTINENT OF BOWEL; LBM TODAY. CHRONIC BUCHANAN PATENT AND DRAINING TO GRAVITY. SHARRI RUQ PATENT. AMBULATES SBA c FWW. MEDS WHOLE c FLUIDS. IV FLUIDS DCd. AT BEDSIDE MOST OF DAY. ANTICIPATE DC HOME 10/09/24 c HH. BED IN LOWEST POSITION, CALL LIGHT WITHIN REACH, ALL NEEDS MET. REPORT TO ONCOMING NURSE.
[2024-10-07 20:12] VITALS: BP 157/73
[2024-10-08] MEDS ORDERED: NS 250 ML IV PRN (02:15)
[2024-10-08 04:57] VITALS: BP 160/74
--- NOTE | 2024-10-08 05:45 | NUR ---
SENIOR ACCOUNTANT SUMMARY NO ACUTE EVENTS. PT PLEASANT AND COOPERATIVE c CARE. BORDERED DRESSING TO RIGHT ABD COVERING PINROSE DRAIN SATURATED WITH LIGHT BROWN/YELLOW DRAINAGE. DRESSING CHANGED AND MONITORED T/O THE NIGHT. NO FURTHER DRESSING CHANGED REQUIRED. PT ABLE TO MAKE NEEDS KNOWN. MEDS PER APR. BUCHANAN PATENT AND DRAINING TO GRAVITY. CALL LIGHT ACCESSIBLE. REGULAR INTERVAL ROUNDING COMPLETE T/O THE SHIFT. CARE WILL CONTINUE UNTIL REPORT GIVEN TO ONCOMING NURSE.
[2024-10-08 07:47] VITALS: BP 150/67
[2024-10-08 14:39] VITALS: BP 132/69
[2024-10-08 19:24] VITALS: BP 133/64
--- NOTE | 2024-10-08 19:36 | NUR ---
SHIFT SUMMARY PT IS A/Ox4. PLEASANT AND COOPERATIVE WITH CARE. ABLE TO MAKE NEEDS KNOWN WITH CALL LIGHT. CURRENT PLAN IS FOR PICC LINE TO BE PLACED TOMMORROW THEN D/C HOME ON ABX. PT IS CURRENTLY RESTING IN BED, BED IS IN LOWEST POSITION AND CALL LIGHT IS IN REACH.
--- NOTE | 2024-10-09 03:46 | NUR ---
SHIFT SUMMARY NO ACUTE EVENTS DURING THIS SHIFT. PT DENIES PAIN AND DISCOMFORT. PT IS PLEASANT AND COOPERATIVE WITH CARE. PT IS ABLE TO MAKE HIS NEEDS KNOWN. IV ABX'S INFUSED ORDERED. RUQ MEPILEX C/D/I. HS BG 198. CHRONIC BUCHANAN DRAINING TO GRAVITY, YELLOW COLOR URINE. NO ACUTE DISTRESS NOTED/REPORTED DURING THIS SHIFT. VSS. AFEBRILE. BED AT THE LOWEST POSITION, CALL LIGHT W/I REACH.
[2024-10-09 05:24] VITALS: BP 137/74
[2024-10-09 07:09] VITALS: BP 133/62
[2024-10-09] MEDS ORDERED: Cipro IV (13:25)
[2024-10-09] MEDS ORDERED: FLAGYL IV (13:28)
[2024-10-09] MEDS ORDERED: BASAGLAR K100 UNIT/1 SC (13:29)
--- NOTE | 2024-10-09 14:55 | NUR ---
SHIFT/DISCHARGE SUMMARY: PATIENT A/OX4, PLEASANT AND COOPERATIVE c CARE. PATIENT RECEIVED IV ABX/SCHEDULED MEDS PER EMAR. PATIENT HAD PICC LINE PLACE TODAY BY RODRIGUE RODRIGUEZ RN. MIPELEX DRESSING CHANGED TO R ABDOMEN SHARRI DRAIN ABSCESS. PATIENT HAS GOOD APPETITE, CHRONIC [place] PATENT DRAINING YELLOW URINE TO GRAVITY, CATH CARE DONE. PATIENT HAS HAD NO COMPLAINTS OR DENIES ANY CONCERN THIS SHIFT. PATIENT DISCHARGE HOME c PICC LINE FOR IV ABX TX PER ORDER. DISCHARGE INSTRUCTIONS PACKET GIVEN TO PATIENT. PATIENT EDUCATED ON ADMITTING DX'S OF SEPSIS, S/S, TX, NEW RX AND TO F/U c PCP AND DR. DOWNEY-GENERAL SURGEON. PATIENT AND SPOUSE ALSO EDUCATED ON INSULIN ADMINISTRATION AND PICC LINE CARE. THEY BOTH VERBALIZED UNDERSTANDING AND NO FURTHER QUESTIONS. RX WAS FAXED TO PATIENT PREFERRED [facility]ARMACY-[facility]. ALL PERSONAL BELONGINGS WERE SENT c PATIENT. PATIENT LEFT THE ROOM AT 1407, TRANSPORTED VIA WC TO PATIENT ENTRANCE BY RAUL MCKEON.
--- NOTE | 2024-10-10 11:10 | NUR ---
PT'S SPOUSE MICHELLE CALLED THIS NURSE LAST NIGHT AND STATED THAT PHARMACY WOULD NOT DISPENCE INSULIN PEN NEEDLES AND THAT PT NEEDED SCRIPT. THIS NURSE CALLED DR SINGH WHO FILLED OUT SCRIPT. THIS NURSE CALLED MICHELLE BACK WHO WILL MEDICINAL CHEMIST SCRIPT FROM [facility] SOON POSSIBLE. FAX SENT TO [facility]. MICHELLE'S NUMBER IS [phone]
== END 2024-10-09 14:10 | disposition home health service (06) | DRG 372 ==
LOC: ER 14:10 → MEDS 22:50
PROVIDERS: Internal Medicine; Student in an Organized Health Care Education/Training Program; ADMIT Student in an Organized Health Care Education/Training Program
PROC: 3E03329 Introduction of Other Anti-infective into Peripheral Vein, Percutaneous Approach (ICD-10-PCS; principal; 2024-10-04)
PROC: 02HV33Z Insertion of Infusion Device into Superior Vena Cava, Percutaneous Approach (ICD-10-PCS; 2024-10-04)
DX: K65.1 Peritoneal abscess (principal); E87.1 Hypo-osmolality and hyponatremia; L02.31 Cutaneous abscess of buttock; E87.20 Acidosis, unspecified; E11.9 Type 2 diabetes mellitus without complications; E83.42 Hypomagnesemia; N40.0 Benign prostatic hyperplasia without lower urinary tract symptoms; I10 Essential (primary) hypertension; E11.42 Type 2 diabetes mellitus with diabetic polyneuropathy; K52.9 Noninfective gastroenteritis and colitis, unspecified; K74.60 Unspecified cirrhosis of liver; Z88.5 Allergy status to narcotic agent; Z79.84 Long term (current) use of oral hypoglycemic drugs; Z79.899 Other long term (current) drug therapy; Z79.82 Long term (current) use of aspirin; Z90.79 Acquired absence of other genital organ(s); Z98.890 Other specified postprocedural states
CPT/HCPCS: 36415; 36569; 74177; 80048; 80053; 81001; 82728; 82947; 83540; 83550; 83605; 84145; 85025; 85610; 85651; 87040; 87507; 93306; 96365-59; 99285-25; A9270; C1751; J0360; J0744; J1650; J1750; J1815; J2543; J7030; J7050; J7120; Q9967

== ENCOUNTER 2024-10-12 22:45 | Emergency (ER) | payer MEDICARE, OTHER ==
[~2024-10-12] VITALS: Ht 162.6 cm; Wt 68.0 kg
[~2024-10-12 22:45] MED LIST changes: +BASAGLAR K100 UNIT/1 SC; +Cipro IV; +FLAGYL IV
[2024-10-12 23:31] VITALS: BP 131/66
== END 2024-10-13 01:25 | disposition home or self-care (01) ==
LOC: ER 22:45
DX: T82.594A Other mechanical complication of infusion catheter, initial encounter (principal); Z88.8 Allergy status to other drugs, medicaments and biological substances; I10 Essential (primary) hypertension; E11.40 Type 2 diabetes mellitus with diabetic neuropathy, unspecified; Z79.2 Long term (current) use of antibiotics; Z79.899 Other long term (current) drug therapy; Z59.89 Other problems related to housing and economic circumstances
CPT/HCPCS: 99282

== ENCOUNTER → 2024-10-14 | Outpatient (CLI) | payer MEDICARE, OTHER ==
[2024-10-14 12:21] LABS: BASOPHILS ABSOLUTE AUTO 0.05 K/mm3 (0.00-0.23); BASOPHILS PERCENT AUTO 1 % (0-2); EOSINOPHILS ABSOLUTE AUTO 0.07 K/mm3 (0.00-0.68); EOSINOPHILS PERCENT AUTO 1 % (0-6); Hematocrit 31.1 % (37.0-53.0); Hemoglobin 9.7 g/dL (13.5-17.5); IMMATURE GRAN ABSOLUTE AUTO 0.02 K/mm3 (0.00-0.10); IMMATURE GRAN PERCENT AUTO 0 % (0-1); LYMPHOCYTES ABSOLUTE AUTO 1.02 K/mm3 (0.84-5.20); LYMPHOCYTES PERCENT AUTO 14 % (21-46); MONOCYTES ABSOLUTE AUTO 0.76 K/mm3 (0.16-1.47); MONOCYTES PERCENT AUTO 11 % (4-13); Mean Corpuscular HGB Conc 31.2 g/dL (31.5-36.5); Mean Corpuscular Volume 90 fL (80-100); NEUTROPHILS ABSOLUTE AUTO 5.14 K/mm3 (1.96-9.15); NEUTROPHILS PERCENT AUTO 73 % (41-73); NRBC ABSOLUTE 0.00 K/mm3 (0.00-0.02); NRBC Auto 0.0 /100 WBC (0.0-0.2); Platelet Count 137 K/mm3 (150-400); RDW Coefficient Variation 17.6 % (11.7-14.2); RDW Standard Deviation 57.2 fL (35.1-46.3)
[2024-10-14 12:30] LABS: Alanine Aminotransfer (ALT/SGP 45.0 U/L (12-78); Albumin, Blood 2.8 g/dL (3.4-5.0); Albumin/Globulin Ratio 0.7 (0.8-1.8); Anion Gap 10.0 mmol/L (3-11); Aspartate Aminotrans (AST/SGOT 36.0 U/L (12-37); Bilirubin, Total 0.2 mg/dL (0.1-1.0); Blood Urea Nitrogen 10.0 mg/dL (8-24); CO2, Blood 26.0 mmol/L (21-32); Calcium, Blood 8.6 mg/dL (8.5-10.1); Chloride, Blood 106.0 mmol/L (98-108); Creatinine, Blood 0.65 mg/dL (0.60-1.20); Globulin, Blood 4.1 g/dL (2.2-4.0); Glucose, Blood 169.0 mg/dL (70-99); Potassium, Blood 4.0 mmol/L (3.5-5.5); Sodium, Blood 138.0 mmol/L (136-145); Total Protein, Blood 6.9 g/dL (6.4-8.2)
== END | disposition home or self-care (01) ==
LOC: LAB 11:33 → LAB SHORT 11:33
PROVIDERS: Surgery
DX: K65.1 Peritoneal abscess (principal)
CPT/HCPCS: 80053; 85025

== ENCOUNTER → 2024-10-21 | Outpatient (CLI) | payer MEDICARE, OTHER ==
[2024-10-21 13:10] LABS: Hematocrit 31.9 % (37.0-53.0); Hemoglobin 10.1 g/dL (13.5-17.5); Mean Corpuscular HGB Conc 31.7 g/dL (31.5-36.5); Mean Corpuscular Volume 90 fL (80-100); NRBC ABSOLUTE 0.00 K/mm3 (0.00-0.02); NRBC Auto 0.0 /100 WBC (0.0-0.2); Platelet Count 113 K/mm3 (150-400); RDW Coefficient Variation 18.1 % (11.7-14.2); RDW Standard Deviation 59.2 fL (35.1-46.3)
[2024-10-21 13:46] LABS: Alanine Aminotransfer (ALT/SGP 38.0 U/L (12-78); Albumin, Blood 2.7 g/dL (3.4-5.0); Albumin/Globulin Ratio 0.7 (0.8-1.8); Anion Gap 10.0 mmol/L (3-11); Aspartate Aminotrans (AST/SGOT 37.0 U/L (12-37); Bilirubin, Total 0.3 mg/dL (0.1-1.0); Blood Urea Nitrogen 8.0 mg/dL (8-24); CO2, Blood 26.0 mmol/L (21-32); Calcium, Blood 8.7 mg/dL (8.5-10.1); Chloride, Blood 105.0 mmol/L (98-108); Creatinine, Blood 0.68 mg/dL (0.60-1.20); Globulin, Blood 4.0 g/dL (2.2-4.0); Glucose, Blood 137.0 mg/dL (70-99); Potassium, Blood 3.8 mmol/L (3.5-5.5); Sodium, Blood 137.0 mmol/L (136-145); Total Protein, Blood 6.7 g/dL (6.4-8.2)
== END | disposition home or self-care (01) ==
LOC: LAB 11:15 → LAB SHORT 11:15
PROVIDERS: Surgery
DX: K65.1 Peritoneal abscess (principal)
CPT/HCPCS: 80053; 85027

== ENCOUNTER → 2024-10-28 | Outpatient (CLI) | payer MEDICARE, OTHER ==
[2024-10-28 17:56] LABS: BASOPHILS ABSOLUTE AUTO 0.05 K/mm3 (0.00-0.23); BASOPHILS PERCENT AUTO 1 % (0-2); EOSINOPHILS ABSOLUTE AUTO 0.11 K/mm3 (0.00-0.68); EOSINOPHILS PERCENT AUTO 2 % (0-6); Hematocrit 37.8 % (37.0-53.0); Hemoglobin 11.8 g/dL (13.5-17.5); IMMATURE GRAN ABSOLUTE AUTO 0.01 K/mm3 (0.00-0.10); IMMATURE GRAN PERCENT AUTO 0 % (0-1); LYMPHOCYTES ABSOLUTE AUTO 1.07 K/mm3 (0.84-5.20); LYMPHOCYTES PERCENT AUTO 20 % (21-46); MONOCYTES ABSOLUTE AUTO 0.57 K/mm3 (0.16-1.47); MONOCYTES PERCENT AUTO 11 % (4-13); Mean Corpuscular HGB Conc 31.2 g/dL (31.5-36.5); Mean Corpuscular Volume 91 fL (80-100); NEUTROPHILS ABSOLUTE AUTO 3.60 K/mm3 (1.96-9.15); NEUTROPHILS PERCENT AUTO 67 % (41-73); NRBC ABSOLUTE 0.00 K/mm3 (0.00-0.02); NRBC Auto 0.0 /100 WBC (0.0-0.2); Platelet Count 129 K/mm3 (150-400); RDW Coefficient Variation 18.6 % (11.7-14.2); RDW Standard Deviation 62.4 fL (35.1-46.3)
[2024-10-28 21:35] LABS: Alanine Aminotransfer (ALT/SGP 52.0 U/L (12-78); Albumin, Blood 3.1 g/dL (3.4-5.0); Albumin/Globulin Ratio 0.7 (0.8-1.8); Anion Gap 7.0 mmol/L (3-11); Aspartate Aminotrans (AST/SGOT 48.0 U/L (12-37); Bilirubin, Total 0.7 mg/dL (0.1-1.0); Blood Urea Nitrogen 7.0 mg/dL (8-24); CO2, Blood 29.0 mmol/L (21-32); Calcium, Blood 9.4 mg/dL (8.5-10.1); Chloride, Blood 106.0 mmol/L (98-108); Creatinine, Blood 0.66 mg/dL (0.60-1.20); Globulin, Blood 4.3 g/dL (2.2-4.0); Glucose, Blood 143.0 mg/dL (70-99); Potassium, Blood 3.8 mmol/L (3.5-5.5); Sodium, Blood 138.0 mmol/L (136-145); Total Protein, Blood 7.4 g/dL (6.4-8.2)
== END | disposition home or self-care (01) ==
LOC: LAB 16:27 → LAB SHORT 16:27
PROVIDERS: Surgery
DX: K65.1 Peritoneal abscess (principal)
CPT/HCPCS: 80053; 85025

== ENCOUNTER 2024-10-29 20:36 | Emergency (ER) | payer MEDICARE, OTHER ==
[~2024-10-29] VITALS: Ht 157.5 cm; Wt 68.0 kg
[2024-10-29] MEDS ORDERED: Alteplase Recombinant 2 MG / Vial IV ONE (22:45)
[2024-10-30] VITALS: BP 135/77
== END 2024-10-30 00:26 | disposition home or self-care (01) ==
LOC: ER 20:36
DX: T82.594A Other mechanical complication of infusion catheter, initial encounter (principal); E11.9 Type 2 diabetes mellitus without complications; I10 Essential (primary) hypertension; Z79.899 Other long term (current) drug therapy; Z79.4 Long term (current) use of insulin; Z88.5 Allergy status to narcotic agent
CPT/HCPCS: J2997

== ENCOUNTER → 2024-11-04 | Outpatient (CLI) | payer MEDICARE, OTHER ==
[2024-11-04 18:47] LABS: BASOPHILS ABSOLUTE AUTO 0.02 K/mm3 (0.00-0.23); BASOPHILS PERCENT AUTO 0 % (0-2); EOSINOPHILS ABSOLUTE AUTO 0.16 K/mm3 (0.00-0.68); EOSINOPHILS PERCENT AUTO 2 % (0-6); Hematocrit 29.6 % (37.0-53.0); Hemoglobin 9.4 g/dL (13.5-17.5); IMMATURE GRAN ABSOLUTE AUTO 0.03 K/mm3 (0.00-0.10); IMMATURE GRAN PERCENT AUTO 0 % (0-1); LYMPHOCYTES ABSOLUTE AUTO 0.78 K/mm3 (0.84-5.20); LYMPHOCYTES PERCENT AUTO 7 % (21-46); MONOCYTES ABSOLUTE AUTO 0.95 K/mm3 (0.16-1.47); MONOCYTES PERCENT AUTO 9 % (4-13); Mean Corpuscular HGB Conc 31.8 g/dL (31.5-36.5); Mean Corpuscular Volume 91 fL (80-100); NEUTROPHILS ABSOLUTE AUTO 8.84 K/mm3 (1.96-9.15); NEUTROPHILS PERCENT AUTO 82 % (41-73); NRBC ABSOLUTE 0.00 K/mm3 (0.00-0.02); NRBC Auto 0.0 /100 WBC (0.0-0.2); Platelet Count 126 K/mm3 (150-400); RDW Coefficient Variation 17.8 % (11.7-14.2); RDW Standard Deviation 59.9 fL (35.1-46.3)
[2024-11-04 23:33] LABS: Alanine Aminotransfer (ALT/SGP 23.0 U/L (12-78); Albumin, Blood 2.5 g/dL (3.4-5.0); Albumin/Globulin Ratio 0.7 (0.8-1.8); Anion Gap 9.0 mmol/L (3-11); Aspartate Aminotrans (AST/SGOT 24.0 U/L (12-37); Bilirubin, Total 0.3 mg/dL (0.1-1.0); Blood Urea Nitrogen 19.0 mg/dL (8-24); CO2, Blood 25.0 mmol/L (21-32); Calcium, Blood 7.9 mg/dL (8.5-10.1); Chloride, Blood 103.0 mmol/L (98-108); Creatinine, Blood 1.36 mg/dL (0.60-1.20); Globulin, Blood 3.8 g/dL (2.2-4.0); Glucose, Blood 168.0 mg/dL (70-99); Potassium, Blood 3.4 mmol/L (3.5-5.5); Sodium, Blood 134.0 mmol/L (136-145); Total Protein, Blood 6.3 g/dL (6.4-8.2)
== END | disposition home or self-care (01) ==
LOC: LAB 17:17 → LAB SHORT 17:17
PROVIDERS: Surgery
DX: K65.1 Peritoneal abscess (principal)
CPT/HCPCS: 80053; 85025

== ENCOUNTER → 2024-11-12 | Outpatient (CLI) | payer MEDICARE, OTHER ==
[2024-11-12 17:37] LABS: BASOPHILS ABSOLUTE AUTO 0.03 K/mm3 (0.00-0.23); BASOPHILS PERCENT AUTO 1 % (0-2); EOSINOPHILS ABSOLUTE AUTO 0.20 K/mm3 (0.00-0.68); EOSINOPHILS PERCENT AUTO 3 % (0-6); Hematocrit 28.8 % (37.0-53.0); Hemoglobin 9.2 g/dL (13.5-17.5); IMMATURE GRAN ABSOLUTE AUTO 0.02 K/mm3 (0.00-0.10); IMMATURE GRAN PERCENT AUTO 0 % (0-1); LYMPHOCYTES ABSOLUTE AUTO 1.01 K/mm3 (0.84-5.20); LYMPHOCYTES PERCENT AUTO 17 % (21-46); MONOCYTES ABSOLUTE AUTO 0.58 K/mm3 (0.16-1.47); MONOCYTES PERCENT AUTO 10 % (4-13); Mean Corpuscular HGB Conc 31.9 g/dL (31.5-36.5); Mean Corpuscular Volume 91 fL (80-100); NEUTROPHILS ABSOLUTE AUTO 4.18 K/mm3 (1.96-9.15); NEUTROPHILS PERCENT AUTO 70 % (41-73); NRBC ABSOLUTE 0.00 K/mm3 (0.00-0.02); NRBC Auto 0.0 /100 WBC (0.0-0.2); Platelet Count 177 K/mm3 (150-400); RDW Coefficient Variation 17.2 % (11.7-14.2); RDW Standard Deviation 58.3 fL (35.1-46.3)
[2024-11-12 17:44] LABS: Alanine Aminotransfer (ALT/SGP 26.0 U/L (12-78); Albumin, Blood 2.6 g/dL (3.4-5.0); Albumin/Globulin Ratio 0.7 (0.8-1.8); Anion Gap 6.0 mmol/L (3-11); Aspartate Aminotrans (AST/SGOT 29.0 U/L (12-37); Bilirubin, Total 0.2 mg/dL (0.1-1.0); Blood Urea Nitrogen 5.0 mg/dL (8-24); CO2, Blood 29.0 mmol/L (21-32); Calcium, Blood 8.2 mg/dL (8.5-10.1); Chloride, Blood 109.0 mmol/L (98-108); Creatinine, Blood 0.66 mg/dL (0.60-1.20); Globulin, Blood 3.8 g/dL (2.2-4.0); Glucose, Blood 120.0 mg/dL (70-99); Potassium, Blood 3.2 mmol/L (3.5-5.5); Sodium, Blood 141.0 mmol/L (136-145); Total Protein, Blood 6.4 g/dL (6.4-8.2)
== END | disposition home or self-care (01) ==
LOC: LAB 15:51 → LAB SHORT 15:51
PROVIDERS: Surgery
DX: K65.1 Peritoneal abscess (principal)
CPT/HCPCS: 80053; 85025